=== PATIENT | female | born 1970 | race African-American/Black ===

== ENCOUNTER 2017-07-05 08:00 | Emergency (ER) | payer MEDICAID, MEDICARE ==
[2017-07-05 08:46] LABS: #Monocytes 0.3 thou/uL (0.11-0.59); #Neutrophils 8.5 thou/uL (1.40-6.50); %Basophils 0.4 % (0.0-1.0); %Eosinophils 0.2 % (0.0-10.0); %Lymphocytes 10.2 % (21.0-51.0); %Monocytes 3.2 % (0.0-10.0); Hematocrit 38.9 % (36.0-47.0); Mean Platelet Volume 6.6 fL (7.4-10.4); White Blood Cell (WBC) Count 9.9 thou/uL (4.8-10.8)
[2017-07-05 08:49] LABS: Bilirubin Moderate (Negative); Blood, Urine Moderate (Negative); Glucose, Urine (Dipstick) Negative (Negative); Ketone, Urine Trace mg/dL (Negative); Nitrite Negative (Negative); Protein, Urine (Dipstick) > or equal to 300 mg/dL (Neg-Trace)
[2017-07-05 08:52] LABS: Bacteria/HPF 1+ HPF (None Seen); Squamous Epithelial 21-50 HPF (0-3)
[2017-07-05 09:09] LABS: ALT (SGPT) 21 U/L (8-55); AST (SGOT) 16 U/L (5-34); Alkaline Phosphatase 163 U/L (40-150); Anion Gap 17 mmol/L (10-20); BUN (Urea Nitrogen) 35 mg/dL (7.0-18.7); Bilirubin, Total 1.1 mg/dL (0.2-1.2); Calc. Creatinine Clearance 0 mL/min (70-130); Calcium 9.9 mg/dL (7.8-10.44); Carbon Dioxide 28 mmol/L (22-29); Chloride 96 mmol/L (98-107); Estimated GFR-MDRD 11; Globulin 4.2 g/dL (2.4-3.5); Lipase Less than 4 U/L (8-78); Magnesium 2.9 mg/dL (1.6-2.6); Phosphorus 5.2 mg/dL (2.3-4.7); Protein, Total 7.9 g/dL (6.0-8.3)
[2017-07-05 09:15] LABS: Troponin I 0.643 ng/mL (< 0.028)
[2017-07-05 09:16] LABS: Hyaline Casts/LPF 4-6 HYALINE CAST LPF (0-3 Hyaline)
[2017-07-05] MEDS ORDERED: hydrALAZINE 20 MG/ML VIAL ONE (10:07)
[2017-07-05] MEDS ORDERED: Ondansetron HCl/PF 4 MG/2 ML Vial ONE ×2 (10:07→13:14)
--- NOTE | 2017-07-05 10:18 | RAD ---
FRONTAL VIEW CHEST: COMPARISON: 04/12/17. INDICATION: Nausea, end-stage renal disease. FINDINGS: There is edema of the bilateral perihilar regions as well as bilateral pleural effusions. Enlargeme nt of the cardiac silhouette again seen. No significant interval change otherwise depicted. IMPRESSION: Enlargement of the cardiac silhouette with pulmonary edema and bilateral pleural effusions. POS: [facility]
== END 2017-07-05 11:20 | disposition home or self-care (01) ==
LOC: ERS 08:00
DX: I13.2 Hypertensive heart and chronic kidney disease with heart failure and with stage 5 chronic kidney disease, or end stage renal disease (principal); I50.9 Heart failure, unspecified; N18.6 End stage renal disease; E87.70 Fluid overload, unspecified; I25.2 Old myocardial infarction; E11.9 Type 2 diabetes mellitus without complications; E78.5 Hyperlipidemia, unspecified; Z86.73 Personal history of transient ischemic attack (TIA), and cerebral infarction without residual deficits; Z79.4 Long term (current) use of insulin; Z79.899 Other long term (current) drug therapy
CPT/HCPCS: 71010; 80053; 81003; 81015; 82553; 83690; 83735; 84100; 84484; 85025; 93005; 96374; 96375; J0360; J2405

== ENCOUNTER 2017-07-06 16:09 | Inpatient (IN) | payer MEDICARE ==
[2017-07-06 16:55] LABS: #Lymphocytes 1.4 thou/uL (1.20-3.40); #Monocytes 0.7 thou/uL (0.11-0.59); #Neutrophils 5.8 thou/uL (1.40-6.50); %Basophils 0.3 % (0.0-1.0); %Eosinophils 0.2 % (0.0-10.0); %Lymphocytes 17.5 % (21.0-51.0); %Monocytes 8.7 % (0.0-10.0); Hematocrit 38.9 % (36.0-47.0); Mean Platelet Volume 6.5 fL (7.4-10.4); White Blood Cell (WBC) Count 7.9 thou/uL (4.8-10.8)
[2017-07-06 17:04] LABS: Lactic Acid - Sepsis 1.8 mmol/L (0.5-2.2)
[2017-07-06 17:08] LABS: ALT (SGPT) 21 U/L (8-55); AST (SGOT) 18 U/L (5-34); Alkaline Phosphatase 153 U/L (40-150); Anion Gap 16 mmol/L (10-20); BUN (Urea Nitrogen) 25 mg/dL (7.0-18.7); Bilirubin, Total 1.5 mg/dL (0.2-1.2); Calc. Creatinine Clearance 0 mL/min (70-130); Calcium 9.4 mg/dL (7.8-10.44); Carbon Dioxide 28 mmol/L (22-29); Chloride 95 mmol/L (98-107); Estimated GFR-MDRD 14; Globulin 3.6 g/dL (2.4-3.5); Lipase Less than 4 U/L (8-78); Magnesium 2.4 mg/dL (1.6-2.6); Protein, Total 6.9 g/dL (6.0-8.3)
[2017-07-06 17:16] LABS: Troponin I 0.455 ng/mL (< 0.028)
[2017-07-06 18:27] LABS: Bilirubin Moderate (Negative); Blood, Urine Small (Negative); Glucose, Urine (Dipstick) Negative (Negative); Ketone, Urine Trace mg/dL (Negative); Nitrite Negative (Negative); Protein, Urine (Dipstick) > or equal to 300 mg/dL (Neg-Trace)
[2017-07-06 18:29] LABS: Bacteria/HPF 1+ HPF (None Seen)
[2017-07-06 18:39] LABS: Hyaline Casts/LPF 4-6 HYALINE CAST LPF (0-3 Hyaline)
[2017-07-06] MEDS ORDERED: Ondansetron HCl/PF 4 MG/2 ML Vial ONE (18:49)
--- NOTE | 2017-07-06 20:21 | RAD ---
PORTABLE CHEST: 07/06/17 HISTORY: End-stage renal disease, shortness of breath. COMPARISON: 07/05/17 exam. Heart size is enlarged. There is mild vascular engorgement. There has been a definite improvement to the appearance of the chest. The effusions appear much smaller. IMPRESSION: Cardiomegaly with improved pulmonary edema change. POS: [facility]
[2017-07-06] MEDS ORDERED: Labetalol HCl 100 MG/20 ML VIAL ONE (20:32)
[2017-07-06] MEDS ORDERED: HYDROcodone/Acetaminophen 5/325 mg Tablet PO PRN (20:57)
[2017-07-06] MEDS ORDERED: Zolpidem Tartrate 5 MG TAB PO PRN (20:57)
[2017-07-06] MEDS ORDERED: Ondansetron HCl/PF 4 MG/2 ML Vial IVP PRN (20:57)
[2017-07-06] MEDS ORDERED: Acetaminophen 325 MG TAB PO PRN (20:57)
[2017-07-06] MEDS ORDERED: Famotidine/PF 20 mg/2ml Vial SLOW IVP SCH (21:00)
[2017-07-06] MEDS ORDERED: HumaLOG 300 UNITS/3 ML VIAL SC PRN (21:01)
[2017-07-06] MEDS ORDERED: Dextrose 5% in Water 1,000 ML IV PRN (21:01)
[2017-07-06] MEDS ORDERED: Dextrose 50% Abboject 50 ML SYRINGE SLOW IVP PRN (21:01)
[2017-07-06] MEDS ORDERED: hydrALAZINE 20 MG/ML VIAL SLOW IVP PRN (21:04)
[2017-07-06] MEDS ORDERED: traMADol HCl 50 MG TAB PO PRN (21:04)
--- NOTE | 2017-07-06 21:23 | HP ---
DATE OF ADMISSION: 07/06/2017 ADMITTING PHYSICIAN: Dr. Abraham Santos. PRIMARY CARE PHYSICIAN: Dr. Dubon. CHIEF COMPLAINT: Weakness, nausea and vomiting, shortness of breath. HISTORY OF PRESENT ILLNESS: The patient is a 47-year-old female with history of end-stage renal dis ease on dialysis. Due to family issues, she was not able to maintain her normal Saturday, Saturday, Saturday dialysis regimen. She has been suffering with nausea and vomiting since Saturday with incre ased shortness of breath. She had ultrafiltration yesterday, but presents today with continued weak ness, nausea, and \\\\"empty feeling in her stomach.\\\\" REVIEW OF SYSTEMS: The following complete review of systems was negative, unless otherwise mentione d in the HPI or below: Constitutional: Weight loss or gain, sense of well-being, ability to conduct usual activities, exer cise tolerance. Skin/Breast: Rash, itching, changes in hair growth or loss, nail changes, breast l umps, tenderness, swelling, nipple discharge. Eyes: Vision, double vision, tearing, blind spots, p ain. ENT/Mouth: Headaches (location, time of onset, duration, precipitating factors), vertigo, lightheadedness, injury. Vision, double vision, tearing, blind spots, pain, nose bleeding, colds, obstruction, discharge, dental difficulties, gingival bleeding, dentures, neck stif fness, pain, tenderness, masses in thyroid or other areas Cardiovascular: Precordial pain, subster nal distress, palpitations, syncope, dyspnea on exertion, orthopnea, nocturnal paroxysmal dyspnea, e esau, cyanosis, hypertension, heart murmurs, varicosities, phlebitis, claudication. Respiratory: P ain, shortness of breath, wheezing, stridor, cough, hemoptysis, fever or night sweats. Gastrointest inal: Poor appetite, dysphagia, indigestion, abdominal pain, heartburn, eructation, nausea, vomitin g, hematemesis, jaundice, constipation, or diarrhea, abnormal stools (aleksey-colored, tarry, bloody, g reasy, foul smelling), flatulence, hemorrhoids, recent changes in bowel habits. Genitourinary: Urg ency, frequency, dysuria, nocturia, hematuria, polyuria, oliguria, unusual (or change in) color of u rine, stones, hesitancy, change in size of stream, dribbling, acute retention or incontinence, libid o, potency. Musculoskeletal: Pain, swelling, redness or heat of muscles or joints, limitation, of motion, muscular weakness, atrophy, cramps. Neurologic/Psychiatric: Convulsions, paralyses, tremor , incoordination, parasthesias, difficulties with memory of speech, sensory or motor disturbances, o r muscular coordination (ataxia, tremor), emotional problems, anxiety, depression, previous psychiat james care, unusual perceptions, hallucinations. Allergy/Immunologic: Skin rash, anemia, bleeding te ndency, polydipsia, polyuria, intolerance to heat or cold. PAST MEDICAL HISTORY: As stated, end-stage renal disease, dyslipidemia, diabetes, hypertension, his tory of CVA, congestive heart failure. PAST SURGICAL HISTORY: Positive for hysterectomy, tubal ligation, bilateral eye surgery, cardiac st ent placement, amputation of the second toe on her left foot and dialysis shunt placement. PSYCHIATRIC HISTORY: None. SOCIAL HISTORY: She drinks socially every week, but denies drug use, no smoking, no alcohol in 2 ye ars. FAMILY HISTORY: Noncontributory to this case. ALLERGIES: No known drug allergies. HOME MEDICATIONS: Effient 10 mg once a day, gabapentin 300 mg t.i.d., Isordil 60 mg every day, hydr alazine 25 mg p.o. t.i.d., Coreg 12.5 mg b.i.d., amlodipine 10 mg once a day, Lasix 40 mg once a day , Pravachol 40 mg once a day, Levemir 25 units b.i.d. PHYSICAL EXAMINATION: VITAL SIGNS: Blood pressure 195/125, pulse 89, respirations 18, temperature 98.7, satting 100% on r oom air. GENERAL: She appears to have mild discomfort, but in no apparent distress. She is oriented to pers on, place and time. HEENT: Normocephalic, atraumatic. EYES: PERRL. Extraocular muscles intact. There is left conjunctival or corneal hemorrhage. NECK: Normal range of motion. Trachea midline. CHEST: Breath sounds relatively clear, no wheezing. CARDIOVASCULAR: Sinus tachycardia. No murmurs, regurgitation or gallop. ABDOMEN: Nontender. There is mild distention, hypoactive bowel sounds. NEUROLOGIC: Normal speech, no focal deficits and once again she is alert and oriented x3. LABORATORY DATA AND IMAGES: Urinalysis shows chris cloudy urine with small amount of leukocytes. U rine protein elevated, urine ketones trace, bilirubin moderate, with 1+ bacteria. Beta hCG negative . BNP 9211, troponin I of 0.455, CK-MB 2.2, mag 2.4, lipase less than 4. CMP shows a sodium of 135 , potassium 3.5, chloride 95, CO2 of 28, BUN 25, creatinine 4.03, glucose 113, calcium 9.4, total bi lirubin 1.5, albumin 3.3, AST 18, ALT 21, alkaline phosphatase 153, lactic acid 1.8. CBC shows a wh ite count of 7.9, hemoglobin 12.1, hematocrit 38.9, platelets 303,000. The patient's chest film oscar ws cardiomegaly with improved pulmonary edema when compared to 07/05. ASSESSMENT AND PLAN: 1. End-stage renal disease. 2. Urinary tract infection. 3. Nausea and vomiting. 4. Diabetes type 2. 5. Uncontrolled hypertension. PLAN: The patient will be admitted to telemetry observation, we will consult Nephrology service. T he patient will be treated empirically with fluoroquinolone and Flagyl to cover possible gastritis a s well as a urinary tract infection. We will make other treatment alterations based her clinical st atus.
[2017-07-06] MEDS: metroNIDAZOLE 250 MG in Admixture Fee 1 EACH IVPB SCH (22:09)
[2017-07-06 22:25] VITALS: BMI 31.8
[2017-07-07 04:31] LABS: Anion Gap 15 mmol/L (10-20); BUN (Urea Nitrogen) 31 mg/dL (7.0-18.7); BUN/Creatinine Ratio 6.94; Calc. Creatinine Clearance 21 mL/min (70-130); Calcium 9.4 mg/dL (7.8-10.44); Carbon Dioxide 31 mmol/L (22-29); Chloride 94 mmol/L (98-107); Estimated GFR-MDRD 13; Phosphorus 4.6 mg/dL (2.3-4.7)
[2017-07-07] MEDS: metroNIDAZOLE 250 MG in Admixture Fee 1 EACH IVPB SCH ×3 (05:36→21:32)
[2017-07-07] MEDS: Carvedilol 6.25 MG TAB PO SCH ×2 (08:33→20:27)
[2017-07-07] MEDS: Amlodipine 10 MG TAB PO SCH (08:33)
--- NOTE | 2017-07-07 12:41 | PDOC.PN ---
- Subjective Encounter Start Date: 07/07/17 Encounter Start Time: 12:38 Subjective: no nausea, right sided abdominal pain - Objective Vital Signs & Weight: Vital Signs (12 hours) Temp Pulse Resp BP Pulse Ox 07/07/17 11:09 98.5 F 73 18 156/82 H 95 07/07/17 08:33 78 07/07/17 08:03 98.5 F 78 16 07/07/17 07:12 98.5 F 78 16 177/81 H 98 07/07/17 05:40 96 07/07/17 03:46 98.4 F 81 16 168/81 H Weight Weight 191 lb 11.2 oz I&O: 07/06/17 07/07/17 07/08/17 06:59 06:59 06:59 Intake Total 240 Output Total 70 Balance -70 240 Result Diagrams: 07/06/17 16:39 07/07/17 03:48 Additional Labs: Accuchecks 07/07/17 07/06/17 11:55 21:35 POC Glucose 88 98 Phys Exam - Physical Examination HEENT: PERRLA, TM's clear Neck: no JVD Respiratory: no wheezing Cardiovascular: RRR Gastrointestinal: soft, no distention, positive bowel sounds Musculoskeletal: no edema Neurological: non-focal, moves all 4 limbs Dx/Plan (1) Nausea & vomiting Code(s): R11.2 - NAUSEA WITH VOMITING, UNSPECIFIED Status: Acute (2) UTI (urinary tract infection) Status: Acute (3) Elevated troponin I level Code(s): R79.89 - OTHER SPECIFIED ABNORMAL FINDINGS OF BLOOD CHEMISTRY Status : Acute Comment: Due to demand ischemia in context sepsis, no ACS (4) Diabetes type 2, controlled Code(s): E11.9 - TYPE 2 DIABETES MELLITUS WITHOUT COMPLICATIONS Status: Chronic Qualifiers: (5) ESRD (end stage renal disease) on dialysis Code(s): N18.6 - END STAGE RENAL DISEASE; Z99.2 - DEPENDENCE ON RENAL DIALYSIS Status: Chronic Comment: HD per Renal service, using Graft for now (6) Hypertension Code(s): I10 - ESSENTIAL (PRIMARY) HYPERTENSION Status: Chronic Qualifiers: Comment: Stable, (7) Obesity (BMI 30.0-34.9) Code(s): E66.9 - OBESITY, UNSPECIFIED Status: Chronic - Plan cont current plan of care check troponin -: asa daily -: consult cardio -: nephro consulted * .
[2017-07-07] MEDS ORDERED: Prasugrel 10 MG TAB PO SCH ×2 (13:30→14:00)
[2017-07-07 13:36] LABS: Critical Call Chem Troponin I RESULT DECREASING; Troponin I 0.409 ng/mL (< 0.028)
[2017-07-07] MEDS: Aspirin 325 MG TAB PO SCH (14:16)
--- NOTE | 2017-07-07 17:11 | CON ---
CARDIOLOGY CONSULTATION NOTE DATE OF CONSULTATION: 07/07/2017 REASON FOR CONSULTATION: Non-STEMI. PRIMARY WOOLING MACHINE OPERATOR: Leonor Topete M.D. HISTORY OF PRESENT ILLNESS: Ms. Lassiter is a very pleasant 47-year-old -[place] female who comes to the hospital for nausea, vomiting and diarrhea. She was diagnosed with gastroenteritis and was admitted. She is on hemodialysis Saturday, Saturday and Saturday due to end-stage renal disease. She had some troponins drawn and they were high at 0.6, so Cardiology has been consulted for this. She has a history of ischemic cardiomyopathy. Her EF was 35% to 40%. She had a heart catheterizat ion back in 03/2017 and had drug-eluting stents placed to the LAD and left circumflex. She tells me that she stopped her antiplatelet therapy on Saturday as she could not hold anything down. She de nies any chest pain, tightness, pressure, no shortness of breath. PAST MEDICAL HISTORY: 1. End-stage renal disease. 2. Hyperlipidemia. 3. Type 2 diabetes. 4. CVA in the past. 5. Ischemic cardiomyopathy. 6. Coronary artery disease as above. PAST SURGICAL HISTORY: 1. Hysterectomy. 2. Tubal ligation. 3. Bilateral eye surgery. 4. Stent placements as above. 5. Second toe and left foot amputation. 6. Dialysis shunt. OUTPATIENT MEDICATIONS: Include; 1. Effient 10 mg a day. 2. Gabapentin. 3. Isordil 60 mg twice a day. 4. Hydralazine 25 mg t.i.d. 5. Coreg 12.5 mg b.i.d. 6. Amlodipine 10 mg a day. 7. Lasix 40 mg a day. 8. Pravachol 40 mg a day. 9. Levemir. ALLERGIES: No known drug allergies. FAMILY HISTORY: Noncontributory. SOCIAL HISTORY: Drinks socially. No drug or alcohol use. REVIEW OF SYSTEMS: A 12-point review of systems is done, it all negative unless otherwise stated in the history of present illness. PHYSICAL EXAMINATION: VITAL SIGNS: Temperature 98.5, pulse 73, respirations 18, satting 95% on room air and blood pressur e 156/82. GENERAL: Awake, alert and oriented x3. No distress. HEENT: Normocephalic and atraumatic. NECK: Supple. LUNGS: Clear. CARDIOVASCULAR: S1 and S2. No S3 or S4. No murmurs or rubs. ABDOMEN: Soft, positive bowel sounds. EXTREMITIES: 1+ edema. SKIN: Warm and dry. LABORATORY DATA: Laboratory work was reviewed. CBC: Normal white count and hemoglobin, platelet c ount of 303. Chemistry was unremarkable for sodium of 135, BUN and creatinine are high, GFR 14, tot al bilirubin was 1.5, alk phos was 153, AST and ALT were normal. CK-MB was normal, troponin was 0.4 5, BNP was 9211 and albumin of 3.5. UA: Trace ketones, small amounts of blood, 11-20 white cells, 11-20 squamous epithelial cells, has 1+ bacteria. Negative test. ASSESSMENT AND PLAN: 1. Non -ST-elevation myocardial infarction; most likely demand ischemia from her acute infectious p rocess as she is asymptomatic from the cardiac standpoint. We will restart her Effient today. We w ill give her 60 mg dose to reload her and 10 mg a day after that. We will get an echocardiogram to make sure that her left ventricular function is not worsened. If it has, she may need a heart claudio terization in the next two days. 2. Ischemic cardiomyopathy, reduced ejection fraction, not a candidate for an automatic implantable cardioverter-defibrillator. We will see what the echocardiogram shows. 3. End-stage renal disease, on dialysis. 4. Hypertension: Will get better once hemodialysis is performed. Thank you for letting us to participate in the care of your patient. Dr. Topete is her primary cardio logist. We will follow up in the morning.
--- NOTE | 2017-07-07 18:34 | CON ---
DATE OF CONSULTATION: 07/07/2017 NEPHROLOGY CONSULTATION CONSULTING PHYSICIAN: Abraham Santos M.D. REASON FOR CONSULTATION: End-stage renal disease evaluation and care. REASON FOR ADMISSION: Nausea, vomiting, and weakness. HISTORY OF PRESENT ILLNESS: This is a 47-year-old female with history of end-stage renal disease, hypertension who came to the hospital with the above complaints and Nephrology is consulted for maintenance hemodialysis, she gets dialysis usually on Saturday, Saturday, and Saturday. She is feeling little bit better today. No fever, no nausea, vomiting, no chest pain, palpitation still is present. No rash. PAST MEDICAL HISTORY: Positive for end-stage renal disease, hyperlipidemia, type 2 diabetes, hypertension, CVA, congestive heart failure. PAST SURGICAL HISTORY: Hysterectomy, tubal litigation, eye surgery, cardiac stent placement, amputation, and dialysis shunt placement. HOME MEDICATIONS: Effient, gabapentin, Isordil, hydralazine, Coreg, amlodipine , Lasix, Pravachol, and Levemir. ALLERGIES: No known drug allergies. FAMILY HISTORY: No history of any kidney disease. SOCIAL HISTORY: No smoking, alcohol or illicit drug abuse. REVIEW OF SYSTEMS: The following complete review of systems was negative, unless otherwise mentioned in the HPI or below: Constitutional: Weight loss or gain, ability to conduct usual activities. Skin: Rash, itching. Eyes: Double vision, pain. ENT/Mouth: Nose bleeding, neck stiffness, pain, tenderness. Cardiovascular: Palpitations, dyspnea on exertion, orthopnea. Respiratory: Shortness of breath, wheezing, cough, hemoptysis, fever or night sweats. Gastrointestinal: Poor appetite, abdominal pain, heartburn, nausea, vomiting, constipation, or diarrhea. Genitourinary: Urgency, frequency, dysuria, nocturia. Musculoskeletal: Pain, swelling. Neurologic/Psychiatric: Anxiety, depression. Allergy/Immunologic: Skin rash, bleeding tendency. PHYSICAL EXAMINATION: GENERAL: Reveals a well-built female in no apparent distress. VITAL SIGNS: Temperature 98.5, pulse 78, respiratory rate 18, blood pressure 156/82. HEENT: Atraumatic, normocephalic. Oral mucosa is moist. NECK: Supple. No masses. CARDIOVASCULAR: S1, S2 heard. Rate and rhythm regular. RESPIRATORY: Clear. ABDOMEN: Soft. MUSCULOSKELETAL: Right leg, 1+ edema. DERMATOLOGIC: No skin rash. NEUROLOGIC: Alert, awake. PSYCHIATRIC: Mood and affect normal. LABORATORY DATA: Potassium is 3.5, BUN is 31, creatinine is 4.4, and hemoglobin is 12.1. ASSESSMENT AND PLAN: 1. End-stage renal disease, on hemodialysis Saturday, Saturday, Saturday. No acute indication for dialysis. We will continue on dialysis on Saturday, Saturday, and Saturday. 2. Hypertension, stable. 3. Edema, controlled. 4. Anemia. Hemoglobin is stable. 5. Hypoalbuminemia. Increase protein intake. 6. Overall, the patient does not have any acute indication for dialysis. We will continue on dialysis Saturday, Saturday, and Saturday. MTDD
[2017-07-07] MEDS ORDERED: Famotidine/PF 20 mg/2ml Vial SLOW IVP SCH (21:00)
[2017-07-08 04:28] VITALS: TEMP 97.9
[2017-07-08] MEDS: metroNIDAZOLE 250 MG in Admixture Fee 1 EACH IVPB SCH (06:30)
[2017-07-08 08:06] VITALS: BP 131/71
[2017-07-08] MEDS ORDERED: Prasugrel 10 MG TAB PO SCH (09:00)
[2017-07-08] MEDS: Amlodipine 10 MG TAB PO SCH (09:11)
[2017-07-08] MEDS: Carvedilol 6.25 MG TAB PO SCH (09:12)
[2017-07-08] MEDS: Aspirin 325 MG TAB PO SCH (09:12)
[2017-07-08 10:00] LABS: #Eosinphils 0.1 thou/uL (0.0-0.7); #Lymphocytes 0.9 thou/uL (1.20-3.40); #Monocytes 0.5 thou/uL (0.11-0.59); #Neutrophils 4.2 thou/uL (1.40-6.50); %Basophils 0.3 % (0.0-1.0); %Eosinophils 1.5 % (0.0-10.0); %Lymphocytes 15.7 % (21.0-51.0); %Monocytes 9.4 % (0.0-10.0); Mean Platelet Volume 6.2 fL (7.4-10.4); Red Blood Cell (RBC) Count 3.92 mill/uL (4.20-5.40); White Blood Cell (WBC) Count 5.8 thou/uL (4.8-10.8)
[2017-07-08 10:17] LABS: Anion Gap 13 mmol/L (10-20); BUN (Urea Nitrogen) 37 mg/dL (7.0-18.7); Calc. Creatinine Clearance 18 mL/min (70-130); Calcium 8.7 mg/dL (7.8-10.44); Carbon Dioxide 30 mmol/L (22-29); Chloride 93 mmol/L (98-107); Estimated GFR-MDRD 10
--- NOTE | 2017-07-08 10:54 | PRG ---
DATE OF SERVICE: 07/08/2017 SUBJECTIVE: A 47-year-old female being seen for end-stage renal disease. Patient denies any nausea , vomiting or chest pain. PHYSICAL EXAMINATION: GENERAL: Patient is awake, alert. VITAL SIGNS: Afebrile, pulse 60, breathing at 16, blood pressure 131/71. GENERAL APPEARANCE AND MENTAL STATUS: Fair. HEAD/NECK: Normocephalic. Atraumatic. EYES: EOMI. No deformity. EARS: Clear. No ulcers. NOSE: Intact. No lesions. MOUTH: Clear. No discharge. THROAT: Clear. No exudate. LUNGS: Clear. No crackles. CARDIAC: S1, S2. No rub. ABDOMEN: Benign. BS+. GENITALIA/RECTUM: Thompson absent. BACK/EXTREMITIES: Edema 0+ Ulcer- NEUROLOGICAL: Alert and motor intact. SKIN: Rash- Bruise- LYMPHATICS: Edema- Ulcer- LABORATORY DATA: Show hemoglobin 11.4. ASSESSMENT AND PLAN: 1. Stage 6 chronic kidney disease, continue hemodialysis. 2. Hypertension, stable. 3. Anemia, stable. 4. Medications based on glomerular filtration rate are appropriate.
--- NOTE | 2017-07-08 11:42 | PDOC.CTH ---
Cardiology Progress Note - Subjective The pt was seen and examined. No overnight events. No cardiac complaints. She is receiving HD at this moment. - Objective Vital Signs Temp Pulse Resp BP BP Pulse Ox 07/08/17 08:00 97.9 F 63 18 07/08/17 07:45 97.9 F 63 18 131/71 99 07/08/17 04:10 97.9 F 63 14 125/69 Weight 191 lb 11.2 oz 07/07/17 07/08/17 07/09/17 06:59 06:59 06:59 Intake Total 1112 Output Total 70 Balance -70 1112 - Physical Examination General/Neuro: alert & oriented x3 Neck: no JVD present Lungs: CTA Heart: RRR Abdomen: soft Extremities: other: (No edema) - Telemetry Telemetry Rhythm: SR 66 - Labs Result Diagrams: 07/08/17 09:36 07/08/17 09:36 Troponin/CKMB CK-MB (CK-2) 2.2 ng/mL (0-6.6) 07/06/17 16:39 Troponin I 0.409 ng/mL (< 0.028) H* 07/07/17 12:54 - Assessment/Plan 1. Ischemic CMY - 2. CAD with hx of drug eluting stent to LAD and Lt circumflex in 03/2017 - stable; cont. monitor on tele 3. CKD stage 6 - HD on MWF; managed by horse stud worker 4. HTN - stable with ASA, BBlocker, and effient 5. DM type 2 - managed by PCP 6. Hx of CVA - stable; cont. monitor 7. Anemia - stable 8. N&V - has not vomiting since last MAR reviewed Review of Systems - Review of Systems Constitutional: reports: no symptoms reported EENTM: reports: no symptoms reported Respiratory: reports: no symptoms reported Cardiac (ROS): reports: no symptoms reported ABD/GI: reports: no symptoms reported : reports: no symptoms reported Musculoskeletal: reports: no symptoms reported Skin: reports: no symptoms reported Neurological: reports: no symptoms reported
--- NOTE | 2017-07-08 12:55 | DIS ---
DATE OF ADMISSION: 07/06/2017 DATE OF DISCHARGE: 07/08/2017 DISCHARGE DIAGNOSES: 1. Urinary tract infection. 2. Severe sepsis. 3. Demand ischemia. 4. Diabetes mellitus type 2. 5. End-stage renal disease, on hemodialysis. 6. Hypertension. 7. Anemia of chronic renal disease. 8. Obesity, body mass index 30-35. CONSULTATIONS: 1. Cardiology, Dr. Julius Noriega. 2. Nephrology, Dr. Tarah Graham and Dr. Aleks Mathias. HISTORY AND PHYSICAL: Ms. Lassiter is a pleasant 47-year-old female with diabetes, hypertension, end-stage renal disease who presented in the emergency department for intractable naus ea and vomiting, weakness, and shortness of breath on 07/06/2017. She was seen and evaluated in the emergency department, she was found to have elevated blood pressur e of 195/125, elevated troponin, dehydration, and elevated blood sugars. She was subsequently broug ht into the hospital for further treatment evaluation and was found to have a UTI and started on ant ibiotics. HOSPITAL COURSE: The patient was seen and examined and admitted by Dr. Abraham Santos. She was initi ally placed on observation, however, did meet inpatient criteria, and was subsequently converted to inpatient prior to discharge. Overnight 07/06/2017 to 07/07/2017, the patient remained stable. Nephrology was consulted and saw h er on the and started to resume dialysis on her normal Saturday, Saturday, Saturday schedule start ing today. [employer] saw her and felt she had elevated troponin secondary to demand ischemia fro m her presenting event and was subsequently not changed any of the medications. Echocardiogram was done that showed EF 40%-45%, grade 2/3 diastolic dysfunction, moderately dilated left atrium and enl arged right atrial size and mild MR. No further intervention made by Cardiology. Nausea and vomiting improved on the and resolved by that night and overnight remained without a ny nausea or vomiting. Blood pressure is under much better control. She denies any chest pain or d ifficulty breathing and is stable for discharge home. PHYSICAL EXAMINATION: VITAL SIGNS: The patient was seen and examined in dialysis on the day of discharge. Discharge plan and disposition were discussed with the patient face to face at the bedside. DISCHARGE MEDICATIONS: 1. Levofloxacin 500 mg orally every other day starting on 07/10/2017. Prescription sent for 3 tabl ets with no refills. 2. Aspirin 325 mg daily. 3. Coreg 12.5 mg p.o. b.i.d. 4. Neurontin 100 mg p.o. t.i.d. 5. Isosorbide mononitrate 60 mg daily. 6. Levemir 25 units subcu at bedtime. 7. Effient 10 mg daily. 8. Pravachol 40 mg p.o. at bedtime. 9. Renvela 800 mg p.o. t.i.d. a.c. 10. Amlodipine 10 mg daily. 11. Hydralazine 25 mg p.o. b.i.d. 12. Tramadol 50 mg p.o. t.i.d. p.r.n. pain. FOLLOWUP APPOINTMENTS: 1. Primary care physician who is Dr. Brad Parkinson within a week. 2. Nephrology per their previously scheduled visits. 2. Cardiology per their schedule. DISCHARGE ACTIVITY: As tolerated. DISCHARGE DIET: Heart healthy, diabetic, renal diet as before. DISCHARGE CONDITION: Stable. DISCHARGE DISPOSITION: The patient will be discharged home via private vehicle. Patient to return to report for any further problems.
== END 2017-07-08 15:30 | disposition home or self-care (01) | DRG 689 ==
LOC: ERS 16:09 → 2SW 21:23 → OBSVTOIN 07-08 12:00
PROVIDERS: ADMIT Internal Medicine Addiction Medicine; ATTEND Internal Medicine Addiction Medicine
PROC: 5A1D70Z Performance of Urinary Filtration, Intermittent, Less than 6 Hours Per Day (ICD-10-PCS; principal; 2017-07-08)
DX: N39.0 Urinary tract infection, site not specified (principal); N18.6 End stage renal disease; I13.2 Hypertensive heart and chronic kidney disease with heart failure and with stage 5 chronic kidney disease, or end stage renal disease; I24.8 Other forms of acute ischemic heart disease; E11.22 Type 2 diabetes mellitus with diabetic chronic kidney disease; Z99.2 Dependence on renal dialysis; Z79.4 Long term (current) use of insulin; E78.5 Hyperlipidemia, unspecified; Z86.73 Personal history of transient ischemic attack (TIA), and cerebral infarction without residual deficits; Z95.5 Presence of coronary angioplasty implant and graft; D63.1 Anemia in chronic kidney disease; E66.9 Obesity, unspecified; Z68.35 Body mass index [BMI] 35.0-35.9, adult; E86.0 Dehydration; I25.5 Ischemic cardiomyopathy; I25.10 Atherosclerotic heart disease of native coronary artery without angina pectoris
CPT/HCPCS: 36415; 36416; 71010; 80048; 80053; 80069; 81003; 81015; 81025; 82553; 83605; 83690; 83735; 83880; 84100; 84484; 85025; 87086; 87340; 90935; 93005; 93306; 94760; 96374; 96375; A4216; G0257; J0360; J1956; J2405; S0028

== ENCOUNTER 2017-08-15 15:30 | Emergency (ER) | payer MEDICARE ==
[2017-08-15 17:14] LABS: #Basophils 0.1 thou/uL (0.0-0.2); #Lymphocytes 1.1 thou/uL (1.20-3.40); #Monocytes 0.4 thou/uL (0.11-0.59); #Neutrophils 4.8 thou/uL (1.40-6.50); %Basophils 0.9 % (0.0-1.0); %Eosinophils 0.4 % (0.0-10.0); %Lymphocytes 16.9 % (21.0-51.0); %Monocytes 5.7 % (0.0-10.0); Red Blood Cell (RBC) Count 4.13 mill/uL (4.20-5.40); White Blood Cell (WBC) Count 6.3 thou/uL (4.8-10.8)
[2017-08-15 17:37] LABS: ALT (SGPT) 7 U/L (8-55); AST (SGOT) 11 U/L (5-34); Alkaline Phosphatase 127 U/L (40-150); Anion Gap 11 mmol/L (10-20); BUN (Urea Nitrogen) 11 mg/dL (7.0-18.7); Bilirubin, Total 1.4 mg/dL (0.2-1.2); Calc. Creatinine Clearance 0 mL/min (70-130); Calcium 9.7 mg/dL (7.8-10.44); Carbon Dioxide 32 mmol/L (22-29); Chloride 97 mmol/L (98-107); Estimated GFR-MDRD 19; Globulin 3.8 g/dL (2.4-3.5); Protein, Total 7.3 g/dL (6.0-8.3)
[2017-08-15] MEDS ORDERED: Ondansetron HCl/PF 4 MG/2 ML Vial ONE (17:39)
[2017-08-15 17:57] LABS: CK (CPK) 132 U/L (29-168); Lipase Less than 4 U/L (8-78)
[2017-08-15 18:02] LABS: Troponin I 0.197 ng/mL (< 0.028)
--- NOTE | 2017-08-15 18:25 | RAD ---
CHEST ONE VIEW: History: Chest pain. Comparison: 04-12-17 FINDINGS: Heart size is enlarged. Small effusion. Mild edema. No pneumothorax. IMPRESSION: Similar appearance of the cardiomegaly and volume overload. POS: [facility]
[2017-08-15 19:05] LABS: Bilirubin Small (Negative); Blood, Urine Large (Negative); Glucose, Urine (Dipstick) 100 mg/dL (Negative); Ketone, Urine Trace mg/dL (Negative); Nitrite Negative (Negative); Protein, Urine (Dipstick) > or equal to 300 mg/dL (Neg-Trace)
[2017-08-15 19:06] LABS: Bacteria/HPF 1+ HPF (None Seen)
[2017-08-15 19:28] LABS: Hyaline Casts/LPF 7-10 HYALINE CAST LPF (0-3 Hyaline); Renal Epithelial None Seen HPF (0-3); Transitional Epithelial NONE SEEN HPF (0-3)
--- NOTE | 2017-08-15 19:52 | CT ---
CT ABDOMEN AND PELVIS WITHOUT CONTRAST: History: Pain. Comparison: 03-12-17 FINDINGS: There are moderate sized bilateral layering pleural effusions. Heart size is enlarged. Trace pericard ial fluid. Compared to the prior examination, the ascites has increased. Debris within the vaginal vault is gil lar. No dilated loops of large or small bowel. There is mild vascular calcifications of the renal arteries . Dense vascular calcification or the origin of the left renal artery. The noncontrast evaluated spleen and liver are unremarkable. Cholecystectomy clips are present. No ac [place] osseous abnormality. No ureterolithiasis or hydroureteronephrosis. Urinary bladder is not distended. IMPRESSION: 1. Increased intraperitoneal ascites from the comparison examination. 2. Moderate sized layering pleural effusions and cardiomegaly. There is also mild volume overload in the lung bases. 3. No renal calculi. POS: [facility]
== END 2017-08-15 20:32 | disposition home or self-care (01) ==
LOC: ERS 15:30
DX: R10.13 Epigastric pain (principal); R11.2 Nausea with vomiting, unspecified; E11.9 Type 2 diabetes mellitus without complications; E78.5 Hyperlipidemia, unspecified; I25.2 Old myocardial infarction; I50.9 Heart failure, unspecified; I11.0 Hypertensive heart disease with heart failure; Z79.4 Long term (current) use of insulin; Z79.899 Other long term (current) drug therapy
CPT/HCPCS: 36415; 71010; 74176; 80053; 81003; 81015; 81025; 82553; 83690; 84484; 85025; 93005; 94760; 96374; J2405

== ENCOUNTER 2018-05-15 19:57 | Observation (INO) | payer MEDICAID, MEDICARE ==
[2018-05-15 20:37] LABS: Bilirubin Small (Negative); Blood, Urine Moderate (Negative); Clarity CLOUDY (Clear); Glucose, Urine (Dipstick) Negative (Negative); Leukocyte Trace (Negative); Nitrite Negative (Negative); Protein, Urine (Dipstick) 300 mg/dL (Neg-Trace); Specific Gravity, Urine 1.019 (1.002-1.036); pH, Urine 7.5 (5.0-9.0)
[2018-05-15 20:39] LABS: Bacteria/HPF 2+ HPF (None Seen); Hyaline Casts/LPF 4-6 HYALINE CAST LPF (0-3 Hyaline); Pathc Cast-AUWi Flag 1.16 (0-2.49); Squamous Epithelial 21-50 HPF (0-3)
[2018-05-15 20:40] LABS: #Eosinphils 0.1 thou/uL (0.0-0.7); #Monocytes 0.4 thou/uL (0.11-0.59); #Neutrophils 4.8 thou/uL (1.40-6.50); %Basophils 0.7 % (0.0-1.0); %Eosinophils 0.9 % (0.0-10.0); %Monocytes 6.1 % (0.0-10.0); %Neutrophils 76.2 % (42.0-75.0); Hemoglobin 10.5 g/dL (12.0-16.0); Mean Corpuscular HGB CONC 32.6 g/dL (32.0-36.0); Mean Corpuscular Hemoglobin 30.2 pg (27.0-31.0); Mean Corpuscular Volume 92.7 fL (78.0-98.0); Mean Platelet Volume 5.7 fL (7.4-10.4); Platelet Count 284 thou/uL (130-400); RBC Distribution Width 15.6 % (11.5-14.5); Red Blood Cell (RBC) Count 3.47 mill/uL (4.20-5.40); White Blood Cell (WBC) Count 6.3 thou/uL (4.8-10.8)
[2018-05-15 21:00] LABS: ALT (SGPT) 8 U/L (8-55); AST (SGOT) 11 U/L (5-34); Albumin 3.7 g/dL (3.5-5.0); Alkaline Phosphatase 139 U/L (40-150); Anion Gap 13 mmol/L (10-20); BUN (Urea Nitrogen) 16 mg/dL (7.0-18.7); Bilirubin, Total 1.4 mg/dL (0.2-1.2); Calc. Creatinine Clearance 0 mL/min (70-130); Calcium 9.4 mg/dL (7.8-10.44); Carbon Dioxide 32 mmol/L (22-29); Chloride 95 mmol/L (98-107); Estimated GFR-MDRD 13; Globulin 4.4 g/dL (2.4-3.5); Glucose 116 mg/dL (70-105); Lipase 4 U/L (8-78); Potassium 3.6 mmol/L (3.5-5.1); Protein, Total 8.1 g/dL (6.0-8.3); Sodium 136 mmol/L (136-145)
[2018-05-15 21:50] LABS: CKMB 2.9 ng/mL (0-6.6); Troponin I 0.172 ng/mL (< 0.028)
--- NOTE | 2018-05-15 23:13 | CT ---
CT ABDOMEN AND PELVIS WITH IV CONTRAST: 05/15/18 HISTORY: Abdominal pain. Nausea. COMPARISON: 08/15/17. FINDINGS: Right pleural fluid has decreased slightly since the previous exam. Gallbladder is surgically absent. Liver, spleen, kidneys, adrenal glands, and pancreas are within normal limits. Moderate amount of fr ee fluid is present throughout the abdomen. Urinary bladder is decompressed. Calcification throughout the arterial structures. IMPRESSION: Moderate amount of ascites and right pleural fluid. Atherosclerosis. No evidence of bowel obstruction or other acute abnormality. POS: [facility]
[2018-05-16 00:40] LABS: Troponin I 0.179 ng/mL (< 0.028)
[2018-05-16] MEDS ORDERED: Acetaminophen 325 MG TAB PO PRN (01:34)
[2018-05-16] MEDS ORDERED: Ondansetron HCl/PF 4 MG/2 ML Vial IVP PRN (01:34)
[2018-05-16] MEDS ORDERED: traMADol HCl 50 MG TAB PO PRN (01:35)
[2018-05-16] MEDS ORDERED: Nitroglycerin 2% Ointment 1 INCH/1 GM Packet ONE (01:35)
[2018-05-16] MEDS ORDERED: Dextrose 50% Abboject 50 ML SYRINGE SLOW IVP PRN (01:37)
[2018-05-16] MEDS ORDERED: HumaLOG 300 UNITS/3 ML VIAL SC PRN (01:37)
[2018-05-16] MEDS ORDERED: Dextrose 5% in Water 1,000 ML IV PRN (01:37)
[2018-05-16] MEDS ORDERED: hydrALAZINE 25 MG TAB PO SCH (01:45)
[2018-05-16] MEDS ORDERED: Carvedilol 25 MG TAB PO SCH (01:45)
[2018-05-16 03:19] VITALS: BMI 36.5
[2018-05-16 03:46] LABS: #Eosinphils 0.1 thou/uL (0.0-0.7); #Lymphocytes 0.9 thou/uL (1.20-3.40); #Monocytes 0.4 thou/uL (0.11-0.59); #Neutrophils 3.7 thou/uL (1.40-6.50); %Basophils 0.8 % (0.0-1.0); %Eosinophils 1.2 % (0.0-10.0); %Monocytes 8.2 % (0.0-10.0); %Neutrophils 71.8 % (42.0-75.0); Hemoglobin 9.2 g/dL (12.0-16.0); Mean Corpuscular HGB CONC 33.9 g/dL (32.0-36.0); Mean Corpuscular Hemoglobin 31.4 pg (27.0-31.0); Mean Corpuscular Volume 92.6 fL (78.0-98.0); Mean Platelet Volume 5.7 fL (7.4-10.4); Platelet Count 220 thou/uL (130-400); RBC Distribution Width 15.6 % (11.5-14.5); Red Blood Cell (RBC) Count 2.93 mill/uL (4.20-5.40); White Blood Cell (WBC) Count 5.2 thou/uL (4.8-10.8)
[2018-05-16 03:59] LABS: Anion Gap 13 mmol/L (10-20); BUN (Urea Nitrogen) 16 mg/dL (7.0-18.7); Calc. Creatinine Clearance 22 mL/min (70-130); Calcium 8.8 mg/dL (7.8-10.44); Carbon Dioxide 29 mmol/L (22-29); Chloride 97 mmol/L (98-107); Estimated GFR-MDRD 13; Glucose 96 mg/dL (70-105); Potassium 3.4 mmol/L (3.5-5.1); Sodium 136 mmol/L (136-145)
[2018-05-16 04:04] LABS: Troponin I 0.155 ng/mL (< 0.028)
--- NOTE | 2018-05-16 06:43 | HP ---
DATE OF ADMISSION: 05/15/2018 PRIMARY CARE PHYSICIAN: Dr. Kim from [facility]. CODE STATUS: FULL CODE. TIME OF EVALUATION: 1:20 a.m. CHIEF COMPLAINT: Chest pain. HISTORY OF PRESENT ILLNESS: This is a 48-year-old female patient with past medical history of end-st age renal disease, diabetes, hypertension, hyperlipidemia, came to the hospital after having epigastr ic chest pain, radiating to the chest, with no clear triggers, not alleviating factors, pain started around 9:00 p.m., associated with nausea, and one episode of vomiting. The pain was rated at 7/10. Troponins were mildly elevated at 0.172. REVIEW OF SYSTEMS: Constitutional: No fever or chills or generalized weakness. Respiratory: No co ugh, sputum production, or shortness of breath. Cardiovascular: No chest pain, palpitations, shortn ess of breath. Gastrointestinal: Epigastric pain, nausea, and vomiting. No diarrhea. 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 Genitourinary: No burning on urination. Patient still ma kes urine. Extremities: Bilateral leg swelling also lesion of calciphylaxis. All other systems wer e reviewed and negative except for the findings mentioned above. PAST MEDICAL HISTORY: As mentioned in the HPI. SOCIAL HISTORY: No smoking history. Drinks socially every week and no drug use. PAST SURGICAL HISTORY: Positive for tubal ligation, eye surgery, cardiac stent x1, amputation of the left foot, dialysis shunt in the left arm. PSYCHIATRIC HISTORY: No psych history. DRUG ALLERGIES: No known drug allergies. REPORTED MEDICATIONS: Effient, gabapentin, isosorbide, hydralazine, Coreg, amlodipine, pravastatin, Levemir, Zofran, tramadol. PHYSICAL EXAMINATION: VITAL SIGNS: On presentation blood pressure 165/84 with heart rate 89, respiratory rate was 19, temp erature 98.9, pain 9/10, oxygen saturation was 100 on room air. GENERAL APPEARANCE: The patient is alert, oriented, not in any acute distress. HEENT: Eye, normal conjuctivae. Moist oral mucosa. Anicteric. NECK: No JVD. RESPIRATORY: Bilateral air entry. No rales, no wheezing. Symmetric expansion. CARDIOVASCULAR: Normal rate, regular rhythm. No murmurs, no gallop. No edema. ABDOMEN: Soft, normal bowel sounds. He is distended, likely . MUSCULOSKELETAL: Baseline range of motion and strength. No tenderness. SKIN: Warm and dry. No palmar, no rash, no redness. The patient has left lower extremity lesions o n calciphylaxis. Peripheral pulses are present. Capillary refill seems to be intact. NEUROLOGIC: Baseline sensory. No evidence of any new focal weakness. Baseline speech. Cranial nerves seem to b e intact. PSYCHIATRIC: The patient is in good mood. No anxiety, optimal judgment. LABORATORY DATA: EKG was reviewed. The patient has normal sinus rhythm with ventricular rate 87, GA 128, QRS 88, QT corrected 478. This EKG was reviewed myself, no evidence of any acute ischemic even t. Abdomen and pelvis CT was done. The patient has moderate amount of ascites and right pleural eff usion, atherosclerosis. No evidence of bowel obstruction, no acute abnormalities. The labs were rev iewed. The patient has white count of 6.3, hemoglobin 10.5, MCV 92.7, platelet count 284. Sodium 13 6, potassium 3.6, chloride 95, carbon dioxide 32, anion gap 13, BUN 16, creatinine 4.45, GFR 13, gluc ose 116. Calcium 9.4, total bilirubin 1.4, troponin 0.172 went on to 0.179. Urine was done and the patient has a white count 4-6. ASSESSMENT AND PLAN: The patient will be placed in the hospital with following medical problems: 1. Chest pain, rule out acute coronary syndrome. Patient has mildly elevated troponin, unclear if t his is a cardiac event, we will consult Cardiology since patient is at high risk with history of prev ious coronary artery disease with stents, troponin, and also epigastric pain. We will follow C ardiology recommendation for any further intervention. We will reconcile home medications. 2. Chronic normocytic anemia likely secondary to chronic kidney failure, we will follow Nephrology f or further recommendations. 3. End-stage renal disease on hemodialysis, patient will follow with [facility] Giang might need arrangement for hemodialysis tomorrow since she is due on Saturday, Saturday, and Saturday. 4. Controlled diabetes. Glucose 116, we will reconcile home medications, adjust treatment as needed . 5. Urinary tract infection. Patient has white count of 4-6 in urine. We will cover her with antibi otics for now. We will follow cultures for further management. 6. Uncontrolled high blood pressure. Patient has 190/110 during my examination, we will reconcile h ome meds, will may need some BP medication for optimal control. 7. Hyperlipidemia. Patient will continue atorvastatin, no cholesterol diet is advised.
[2018-05-16] MEDS: Carvedilol 25 MG TAB PO SCH ×2 (08:33→21:06)
[2018-05-16] MEDS: hydrALAZINE 25 MG TAB PO SCH ×2 (08:33→21:06)
[2018-05-16] MEDS: Prasugrel 10 MG TAB PO SCH (08:33)
[2018-05-16] MEDS: Heparin 5,000 UNITS/ML VIAL SC SCH ×3 (08:33→21:05)
[2018-05-16] MEDS: Amlodipine 10 MG TAB PO SCH (08:33)
[2018-05-16] MEDS: Aspirin 325 MG TAB PO SCH (08:34)
[2018-05-16] MEDS: Sevelamer Carbonate 800 MG TAB PO SCH ×3 (08:34→16:25)
--- NOTE | 2018-05-16 11:38 | CON ---
DATE OF CONSULTATION: 05/16/2018 PRIMARY CARE PHYSICIAN: Dr. Jose Díaz PRIMARY PORT WARDEN: Dr. Leonor Topete REFERRING PHYSICIAN: Dr. Kathy Clement REASON FOR CARDIOLOGY CONSULTATION: Positive troponin level. HISTORY OF PRESENT ILLNESS: Ms. Lassiter is a 48 years old female with a significan t history of stage 5 chronic kidney disease with hemodialysis Saturday, Saturday, Saturday, hypertension , ischemic cardiomyopathy, EF of 25-29% by echo in 11/2017, coronary artery disease with a history of multiple stent placement, last one is in September 2016, high blood pressure, insulin-dependent diabet es, history of CVA, and chronic anemia. The patient reported the patient had chronic soreness in her abdomen for a few months. She was already seen by Dr. Reed at [facility] and she was supposed to have a colonoscopy which she has not had done yet at this moment. She started having th robbing and nagging-like pain in the upper abdominal, right below the patient's sternal bone for 2 da ys, but yesterday, the patient's symptoms were getting worse and she vomited once. The patient decid ed to present to the emergency department for further evaluation and treatment. During the episode, the patient denies chest pain or discomfort, tightness, heaviness in her chest, dizziness, lightheade dness, numbness or pain to the left upper extremity, to her neck or any other cardiac complaints. Th e patient had chronic shortness of breath which is due to change during the episode per patient. The patient had followed with a sponge buffer at the [facility] for possible ki dney transplant. The patient had echocardiograms done over there in 11/2017 which shows EF of 25-29% and moderate mitral annular calcification, mild pulmonary valve regurgitation and mild tricuspid regu rgitation, elevated left ventricular filling pressure and the PA systolic pressure was 46-51% mmHg. The patient had a history of multiple stent placements. The patient had a stent placement in the lef t circumflex in 07/2014, and mid LAD in 04/2017. At that time the patient's EF was 35-40% in 04/2017 . At this moment the patient denies any chest pain or discomfort, tightness or heaviness in her ches t, palpitation, fluttering, shortness of breath, dizziness, lightheadedness, nausea, vomiting or any other cardiac complaints. PAST MEDICAL HISTORY: 1. Three-vessel coronary artery disease with multiple stent placements which the last one was . 2. Chronic kidney disease with hemodialysis on Saturday, Saturday, Saturday since 09/2016. 3. Insulin-dependent diabetes. 4. Hypertension. 5. Hyperlipidemia. 6. Obesity. 7. History of a CVA in 2012 with mild weakness to the left side. 8. Chronic anemia. PAST SURGICAL HISTORY: 1. Bilateral tubal ligation. 2. Total hysterectomy in 2012. 3. Fissure placement in 2016. 4. Left second toe amputation in 2015. 5. Multiple stent placements, last one in September 2016. 6. Bilateral cataracts. 7. Right detachment surgery. 8. Cholecystectomy in 2016. FAMILY HISTORY: There is a significant family history of hypertension, diabetes in her family. The patient's cousin had underwent heart transplant. The patient's both side of grandparents has heart p annette with history of diabetes. SOCIAL HISTORY: The patient is single. She has 2 children who live well. She is living with her [facility] at this moment. She denied any smoking, illicit drug abuse. She used to be a social drinker, but she stopped 100% in 4 or 5 years. REVIEW OF SYSTEMS: Twelve point review of systems is negative, unless mentioned in the HPI or below. The patient did complain of occasional constipation and diarrhea. She wear eyeglasses. She wears de ntures on the upper part of denture. She sometimes has anxiety attack. ALLERGIES: She has no known drug allergies. HOME MEDICATIONS: The patient's home medications: Pravastatin 40 mg once a day, tramadol 50 mg 3 ti mes a day as needed, Renvela 800 mg 3 times a day, Imdur ER 60 mg once a day, hydralazine 25 mg twice a day, Levemir 25 mg at bedtime, carvedilol 12.5 mg twice a day, gabapentin 100 mg 3 times a day, am lodipine 10 mg once a day, Effient 10 mg once a day, Zofran 4 mg p.o. q.6h. p.r.n. PHYSICAL EXAMINATION: VITAL SIGNS: Blood pressure 149/85, pulse is 71, sinus rhythm. O2 sat 97% on room air, temperature 97.5, respiratory rate is 16. GENERAL: The patient is alert, oriented x4, not in acute distress. HEAD: Normocephalic and atraumatic. EYES: Extraocular muscle movement intact. She wears glasses. ENT: Oral and nasal mucosa are moist without lesion. NECK: Supple, normal range of motion, no JVD, no bruit or thrill noticed at the carotid artery site, bilateral carotid artery size. RESPIRATORY: Lungs are clear bilaterally. No wheezing, rales or rhonchi noted. CARDIOVASCULAR: Regular rate and rhythm, normal S1, S2. There are no S3, S4, no murmur, hives, thri ll noted. The bilateral dorsal pedis pulses are present, but there are 1+ pulses in the bilateral po sterior tibial and popliteal arteries. EXTREMITIES: No edema in the bilateral lower extremities. ABDOMEN: Tender to palpate, bowel sounds are present but hypoactive at this moment. SKIN: Warm and dry. No lesion noticed or bruise noted at this moment. NEUROLOGIC: Patient alert and oriented x4. Nonfocal. PSYCHIATRIC: Mood is appropriate. LABORATORY DATA: WBC 5.2, hemoglobin 9.2, hematocrit 27.1, platelets 220. Sodium 136, potassium 3.4 , BUN 16, creatinine 4.36, glucose 96. AST 11, ALT 8, CK-MB 2.9, troponin 0.172 and 0.179 and 0.155. ____ are 4. UA shows positive urine protein, ketones and blood, WBCs and bacteria. The patient's CT scan of abdomen and pelvis with IV contrast showed no evidence of bowel obstruction or other acute abnormalities, but showing a moderate amount of ascites and a right pleural fluid. ASSESSMENT AND PLAN: 1. Indeterminate troponin level. The patient's troponin is slightly elevated today with unknown miguel ology. At this moment the patient denied any cardiac complaints except nausea, which is chronic for this patient. However, due to this slightly elevated troponin I would like to keep the patient n.p.o . at this moment and would like to defer to Dr. Topete to decide whether the patient needs further card iac workup. At this moment, the patient n.p.o. and she is on heparin 500 units subcutaneous 3 times a day, aspirin 325 mg once a day and carvedilol 12.5 mg twice a day, but no TREVOR inhibitor or ARB due to a history of chronic kidney disease and also atorvastatin 10 mg once a day. 2. Ischemic cardiomyopathy with EF of 25-29% in 11/2017. The patient complained of a chronic shortn ess of breath which has not changed during this episode. The patient does not have any edema on the lower extremities. However, the patient had a CT scan of abdomen shows the patient has a moderate am ount of ascites, possibly due to congestive heart failure. Since the patient is a dialysis patient, we would like to defer to Nephrology for fluid management for this patient 3. Coronary artery disease with a history of multiple stent placements. The last stent placement wa s drug eluded stent placement was in 03/2017. The patient's condition is stable at this moment, we w ould like to continue to monitor on telemetry. 4. Chronic kidney disease with hemodialysis on Saturday, Saturday, Saturday, which is managed by nephro logist. 5. Hypertension, slightly elevated today; however, I would like to continue current blood pressure m edication management at this moment because the patient might have a cardiac catheterization, further cardiac workup this afternoon. 6. Diabetes type 2, which is managed by primary care doctor. 7. Chronic anemia which is stable at this moment. 8. Nausea, vomiting. The patient's condition is stable at this moment. She has not had any vomitin g since prior to this admission. 9. History of a cerebrovascular accident. The patient's condition is stable at this moment. 10. Hyperlipidemia. The patient is on a statin at this moment. 11. Decreased pulses in the bilateral lower extremities. The patient denied claudication or numbnes s or tingling to the lower extremities. Patient might need further evaluation for the symptom and th e diagnosis as an outpatient. Thank you very much for allowing the Cardiology Service to participate in care of this patient. We w ill follow along with the patient's care team and make further evaluation as appropriate.
--- NOTE | 2018-05-16 14:07 | CON ---
DATE OF CONSULTATION: 05/16/2018 NEPHROLOGY CONSULTATION REASON FOR CONSULTATION: End-stage renal disease, on maintenance hemodialysis. HISTORY OF PRESENT ILLNESS: A 48-year-old female who presented to the hospital with chest pain, even though the patient stated the pain was mostly in the abdomen not in the chest. The patient has gained some weight and is complaining of . The patient denies any headache, numbness, tingling or weakness. Denies any nausea, vomiting or chest pain. PAST MEDICAL HISTORY: Significant for hypertension, diabetes mellitus, end- stage renal disease, congestive heart failure, history of coronary artery disease, history of tunneled dialysis catheter, history of AV fistula. SOCIAL HISTORY: No alcohol or drug use. FAMILY HISTORY: Negative for ESRD. ALLERGIES: Reviewed. HOME MEDICATIONS: Reviewed. REVIEW OF SYSTEMS: A 15-point review of systems was performed and negative except for positives noted above. General: Weakness-. Head: Headache-. Neck : No swelling or lumps. Nose: No epistaxis or discharge. Eyes: No diplopia or pain. Respiratory: Dyspnea-. Cardiovascular: Chest pain-. Gastrointestinal: Nausea-. 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 Musculoskeletal: No joint pain. Neuropsychiatic Systems: No suicidal ideation. No ideation. Skin: Denies any rash or ulcer. Constitutional: No fever or chills. PHYSICAL EXAMINATION: GENERAL: The patient is awake and alert. VITAL SIGNS: Afebrile, pulse 71, breathing at 16, blood pressure 159/85. OBJECTIVE: See above. Awake, alert, in no acute distress. GENERAL APPEARANCE AND MENTAL STATUS: Fair. HEAD/NECK: Normocephalic. Atraumatic. EYES: EOMI. No deformity. EARS: Clear. No ulcers. NOSE: Intact. No lesions. MOUTH: Clear. No discharge. THROAT: Clear. No exudate. LUNGS: Clear. No crackles. CARDIAC: S1, S2. No rub. ABDOMEN: Benign. BS+. GENITALIA/RECTUM: Thompson absent. BACK/EXTREMITIES: Edema 0+ Ulcer- NEUROLOGICAL: Alert and motor intact. SKIN: Rash- Bruise- LYMPHATICS: Edema- Ulcer- LABORATORY DATA: Hemoglobin 9.2, potassium 3.4, creatinine 4.3. ASSESSMENT: 1. Stage 6 chronic kidney disease, on hemodialysis. 2. Hypertension, stable. 3. Anemia, stable. 4. Medication based on GFR are appropriate. 5. Ascites. PLAN: Ultrafiltration and advised the patient to limit fluid intake. MTDD
[2018-05-16] MEDS ORDERED: Insulin Glargine 25 UNITS in Pre-Filled Syringe 1 EACH SC SCH (21:00)
[2018-05-16] MEDS ORDERED: Non-Formulary Item 1 EACH (Levemir Flexpen [Levemir Flexpen] 25 UNITS) SQ SCH (21:00)
[2018-05-16] MEDS ORDERED: Atorvastatin Calcium 10 MG TAB PO SCH (21:00)
[2018-05-17] MEDS: Sevelamer Carbonate 800 MG TAB PO SCH ×2 (08:20→11:30)
[2018-05-17] MEDS: hydrALAZINE 25 MG TAB PO SCH (08:21)
[2018-05-17] MEDS: Carvedilol 25 MG TAB PO SCH (08:21)
[2018-05-17] MEDS: Amlodipine 10 MG TAB PO SCH (08:21)
[2018-05-17] MEDS: Aspirin 325 MG TAB PO SCH (08:21)
[2018-05-17] MEDS: Heparin 5,000 UNITS/ML VIAL SC SCH ×2 (08:22→14:08)
[2018-05-17] MEDS: Prasugrel 10 MG TAB PO SCH (08:22)
[2018-05-17 11:13] LABS: Anion Gap 15 mmol/L (10-20); BUN (Urea Nitrogen) 13 mg/dL (7.0-18.7); Calc. Creatinine Clearance 24 mL/min (70-130); Calcium 8.7 mg/dL (7.8-10.44); Carbon Dioxide 27 mmol/L (22-29); Chloride 96 mmol/L (98-107); Estimated GFR-MDRD 14; Glucose 96 mg/dL (70-105); Potassium 3.8 mmol/L (3.5-5.1); Sodium 134 mmol/L (136-145)
--- NOTE | 2018-05-17 11:33 | PRG ---
DATE OF SERVICE: 05/17/2018 SUBJECTIVE: This is a 48-year-old female being seen for end-stage renal disease. Patient denies any nausea, vomiting or chest pain. PHYSICAL EXAMINATION: GENERAL: Patient is awake, alert. VITAL SIGNS: Afebrile, pulse 75, breathing 16, blood pressure 124/71. HEAD/NECK: Normocephalic. Atraumatic. EYES: EOMI. No deformity. EARS: Clear. No ulcers. NOSE: Intact. No lesions. MOUTH: Clear. No discharge. THROAT: Clear. No exudate. LUNGS: Clear. No crackles. CARDIAC: S1, S2. No rub. ABDOMEN: Benign. BS+. GENITALIA/RECTUM: Thompson absent. BACK/EXTREMITIES: Edema 0+ Ulcer- NEUROLOGICAL: Alert and motor intact. SKIN: Rash- Bruise- LYMPHATICS: Edema- Ulcer- LABORATORY DATA: Show potassium 3.8. ASSESSMENT AND RECOMMENDATIONS: 1. Stage 6 chronic kidney disease. Continue hemodialysis Saturday, Saturday, Saturday. 2. Hypertension, stable. 3. Anemia, stable. 4. Medications based on glomerular filtration rate are appropriate.
[2018-05-17 11:35] VITALS: BP 139/85; TEMP 97.6
--- NOTE | 2018-05-17 14:32 | ADD-CON ---
DATE OF CONSULTATION: 05/16/2018 Please refer to the notes already dictated by the nurse practitioner, Kerry Soto. INDICATION FOR CONSULTATION: This is a 48-year-old female with history of known coronary artery dise ase, status post angioplasty and stent placement, end-stage renal disease, cardiomyopathy, was admitt ed to the hospital after she complained of epigastric discomfort. She says that she feels like she h as had too much fluid and not getting out enough fluid during her dialysis treatment. She denied any specific chest pain. We were asked to see her due to slightly elevated cardiac enzymes, which is ch ronic for her. She also has chronically elevated cardiac enzymes. I have seen the patient. I have reviewed the records and discussed the patient with my nurse practitioner and would agree with the as sessment and plan. At this time, I do not believe she is a candidate for any repeat cardiac catheter ization as she remains asymptomatic from a cardiac standpoint. She has recently been evaluated for p ossible renal transplant. She was turned down for the renal transplant due to her severe ischemic ca rdiomyopathy. She has suffered myocardial infarctions in the past and has diffuse coronary artery di sease after undergoing multiple stent placements. As far as the remainder of the note, please refer to the notes dictated by the nurse practitioner. I would agree with her assessment and plan. PHYSICAL EXAMINATION: GENERAL: Reveals a middle-aged obese female. VITAL SIGNS: Her blood pressure and vital signs are noted in the chart. CHEST: Clear to auscultation. CARDIOVASCULAR: Reveals a regular rate and rhythm. She has morbid obesity. EXTREMITIES: No significant clubbing, cyanosis or edema. GASTROINTESTINAL: She does have positive bowel sounds noted. Abdomen does appear to be morbidly obe se. IMPRESSION AND PLAN: 1. End-stage chronic kidney disease for which she continues on hemodialysis. She is not a transplan t candidate due to cardiomyopathy. 2. Severe three-vessel coronary artery disease after stent placement. She appears to be relatively stable. 3. Chronic elevation of the cardiac enzymes, most likely due to her end-stage renal disease. 4. Hypertension. This is under relatively good control majority of the time. 5. History of diabetes. This will be monitored by the primary service. She has also had a history of a cerebrovascular accident in the past and has some mild weakness noted on the left side as well a s chronic anemia due to her end-stage renal disease. At this time, the overall cardiac status despite the multiple problems appear to be relatively stable . If there are any changes, we will be more than happy to continue to follow her in the hospital.
--- NOTE | 2018-05-17 22:54 | DIS ---
DATE OF ADMISSION: 05/16/2018 DATE OF DISCHARGE: 05/17/2018 HOSPITAL COURSE: Patient is a very pleasant 48-year-old female with significant past medical history of coronary artery disease. She has a history of hypertension, end-stage renal disease on dialysis, diabetes, who initially presented to the hospital with epigastric pain radiating up to her chest are a. Patient initially underwent a CT abdomen and pelvis, which indicated some ascites and some right pleural effusion, otherwise it was normal. Patient also did have mild elevated troponins, for which she was seen by Cardiology. Cardiology did not think this was related secondary to any kind of ische pranav etiology. Patient underwent dialysis. Patient currently denies any nausea, vomiting, or any abd ominal pain. She will be discharged home. She will follow up with her PCP and will continue her reg ular home medications. DISCHARGE MEDICATIONS: Patient is on Neurontin 100 mg t.i.d., Zofran 4 mg q.6 hours p.r.n., Ultram 5 0 mg t.i.d. p.r.n., Renvela 800 mg t.i.d., pravastatin 40 mg at bedtime, Levemir 25 units at bedtime, amlodipine 10 units daily, hydralazine 25 mg b.i.d., Coreg 12.5 b.i.d., isosorbide 60 mg daily, and Effient 10 mg p.o. daily. Again, the patient has been seen by Cardiology okay for discharge. She was also seen by Nephrology a nd was okay for discharge. She will follow up outpatient for her dialysis. PHYSICAL EXAMINATION: VITAL SIGNS: Temperature 97.6, 55, 139/85, 16. GENERAL: She is awake, alert, oriented x3, does not appear in distress. CARDIOVASCULAR: S1, S2 present. No murmurs, rubs, or gallops. ABDOMEN: Large. Bowel sounds are present x2. She does have some abdominal scars. EXTREMITIES: No edema.
== END 2018-05-17 15:15 | disposition home or self-care (01) ==
LOC: ERS 19:57 → 2NO 05-16 01:14
PROVIDERS: ADMIT Hospitalist; ATTEND Hospitalist
DX: R07.9 Chest pain, unspecified (principal); I13.2 Hypertensive heart and chronic kidney disease with heart failure and with stage 5 chronic kidney disease, or end stage renal disease; E11.22 Type 2 diabetes mellitus with diabetic chronic kidney disease; N18.6 End stage renal disease; I50.9 Heart failure, unspecified; I25.10 Atherosclerotic heart disease of native coronary artery without angina pectoris; D64.9 Anemia, unspecified; E78.5 Hyperlipidemia, unspecified; N39.0 Urinary tract infection, site not specified; R18.8 Other ascites; Z99.2 Dependence on renal dialysis; Z95.5 Presence of coronary angioplasty implant and graft; Z79.4 Long term (current) use of insulin; Z79.899 Other long term (current) drug therapy
CPT/HCPCS: 74177; 80048 ×2; 80053; 82553; 82962 ×2; 83690; 84484 ×2; 85025 ×2; 87086; 93005; 99285; G0378 ×3; 36415; 36416; 81003; 81015; 90935; G0257; J1644

== ENCOUNTER 2019-01-06 09:33 | Day surgery (SDC) | payer MEDICARE ==
[2019-01-05 15:37] VITALS: BMI 35.4
--- NOTE | 2019-01-06 13:58 | OP ---
DATE OF PROCEDURE: 01/06/2019 PROCEDURES PERFORMED: Esophagogastroduodenoscopy with biopsy and aborted colonoscopy. PREOPERATIVE DIAGNOSES: Dyspepsia, abdominal distention, diarrhea, and incontinence. DESCRIPTION OF PROCEDURE: Informed consent was obtained from the patient. She was sedated with total intravenous anesthesia. The bite block was placed and the endoscope was advanced easily to the second portion of the duodenum and retroflexion was performed in the stomach. The esophagus was normal. The GE junction was normal. The stomach had patchy erythematous moderate gastritis in the antrum. Biopsies were obtained from the antrum to rule out H. pylori. Retroflexed views in the stomach were normal. The pylorus and first and second portions of the duodenum were normal. The patient was turned around. Rectal exam was performed and was normal. The colonoscope was advanced to the ascending colon. There was a large amount of solid fibrous stool throughout the colon and the prep was inadequate and poor and the procedure was aborted. IMPRESSION: 1. Moderate antral erythematous gastritis. Biopsies obtained to rule out Helicobacter pylori. 2. Otherwise, normal esophagogastroduodenoscopy. 3. Poor colon prep. The colonoscopy was aborted due to the poor prep. 4. The patient desaturated briefly during the procedure and received bag ventilation with rapid improvement. RECOMMENDATIONS: 1. Await histopathology. 2. Reschedule colonoscopy. 3. Start MiraLAX 17 g daily. Job ID: [id number]
[2019-01-06] MEDS ORDERED: hydrALAZINE 20 MG/ML VIAL ONE (14:07)
[2019-01-06] MEDS ORDERED: PROPOFOL 200 MG/20 ML VIAL ONE (14:31)
[2019-01-06] MEDS ORDERED: Lidocaine 1% PF 5 ML VIAL ONE (14:31)
== END 2019-01-06 15:23 | disposition home or self-care (01) ==
LOC: SDC 09:33
PROVIDERS: ATTEND Internal Medicine Gastroenterology
PROC: 0DB58ZX Excision of Esophagus, Via Natural or Artificial Opening Endoscopic, Diagnostic (ICD-10-PCS; principal; 2019-01-06)
PROC: 0DJD8ZZ Inspection of Lower Intestinal Tract, Via Natural or Artificial Opening Endoscopic (ICD-10-PCS; 2019-01-06)
DX: K29.50 Unspecified chronic gastritis without bleeding (principal); R19.7 Diarrhea, unspecified; I25.10 Atherosclerotic heart disease of native coronary artery without angina pectoris; I42.9 Cardiomyopathy, unspecified; N18.6 End stage renal disease; Z53.8 Procedure and treatment not carried out for other reasons
CPT/HCPCS: 88305; 88312; J0360; J2001; J2704

== ENCOUNTER 2019-01-20 07:26 | Day surgery (SDC) | payer MEDICARE ==
[2019-01-19 14:08] VITALS: BMI 35.4
[2019-01-20] MEDS ORDERED: Labetalol HCl 100 MG/20 ML VIAL ONE (08:20)
--- NOTE | 2019-01-20 11:45 | OP ---
DATE OF PROCEDURE: 01/20/2019 PROCEDURES PERFORMED: Colonoscopy with biopsy. PREOPERATIVE DIAGNOSIS: Chronic diarrhea. DESCRIPTION OF PROCEDURE: Informed consent was obtained from the patient. She was sedated with total intravenous anesthesia. The rectal exam revealed decreased anal sphincter tone. The colonoscope was advanced to the terminal ileum without difficulty. The mucosa of the terminal ileum was normal. The ileocecal valve and appendiceal orifice were clearly identified. The colonic mucosa was normal throughout. Random biopsies were taken in the right and left colon to rule out microscopic colitis. Retroflex views in the rectum revealed a small to moderate internal hemorrhoids. However, these views were difficult due to inability to hold the air well. IMPRESSION: 1. Small internal hemorrhoids to moderate internal hemorrhoids. 2. Otherwise normal ileocolonoscopy. Random biopsies taken from the right and left colon to rule out microscopic colitis. RECOMMENDATIONS: 1. Await histopathology. 2. Follow up in GI Clinic. 3. Repeat colonoscopy in 10 years for screening. Job ID: [id number]
[2019-01-20] MEDS ORDERED: PROPOFOL 200 MG/20 ML VIAL ONE (15:37)
[2019-01-20] MEDS ORDERED: Lidocaine 1% PF 5 ML VIAL ONE (15:37)
== END 2019-01-20 11:52 | disposition home or self-care (01) ==
LOC: SDC 07:26
PROVIDERS: ATTEND Internal Medicine Gastroenterology
PROC: 0DBK8ZX Excision of Ascending Colon, Via Natural or Artificial Opening Endoscopic, Diagnostic (ICD-10-PCS; principal; 2019-01-20)
PROC: 0DBM8ZX Excision of Descending Colon, Via Natural or Artificial Opening Endoscopic, Diagnostic (ICD-10-PCS; 2019-01-20)
DX: K52.9 Noninfective gastroenteritis and colitis, unspecified (principal); K64.8 Other hemorrhoids; I25.10 Atherosclerotic heart disease of native coronary artery without angina pectoris; I13.2 Hypertensive heart and chronic kidney disease with heart failure and with stage 5 chronic kidney disease, or end stage renal disease; E11.22 Type 2 diabetes mellitus with diabetic chronic kidney disease; N18.6 End stage renal disease; I50.9 Heart failure, unspecified; Z79.899 Other long term (current) drug therapy; Z95.5 Presence of coronary angioplasty implant and graft
CPT/HCPCS: 88305; J2001; J2704

== ENCOUNTER 2019-05-14 09:51 | Day surgery (SDC) | payer OTHER ==
[2019-05-13 13:50] VITALS: BMI 36.2
[~2019-05-14 09:51] MED LIST: Fentanyl 100 MCG/2 ML VIAL ONE; Fluorouracil 100 MG, Enoxaparin Sodium 25 MG, EPINEPHrine 0.3 MG in Ophthalmic Irrigati... IRR SCH; Midazolam HCl 2 mg/2 ml Vial ONE
[2019-05-14] MEDS ORDERED: Phenylephrine 2.5% Ophth Soln 5 ML BOT ONE (10:53)
[2019-05-14] MEDS ORDERED: Cyclopentolate 1% Opth Drop 2 ML BOT ONE (10:53)
[2019-05-14] MEDS ORDERED: Lidocaine 4% PF 5 ML AMP ONE (12:04)
[2019-05-14] MEDS ORDERED: Bupivacaine 10 ML VIAL ONE (12:04)
[2019-05-14] MEDS ORDERED: PROPOFOL 200 MG/20 ML VIAL ONE (12:04)
[2019-05-14] MEDS ORDERED: Labetalol HCl 100 MG/20 ML VIAL ONE (13:55)
--- NOTE | 2019-05-14 20:30 | OP ---
DATE OF PROCEDURE: 05/14/2019 PREOPERATIVE DIAGNOSIS: Tractional retinal detachment, left eye. POSTOPERATIVE DIAGNOSIS: Tractional retinal detachment, left eye. PROCEDURES PERFORMED: Pars plana vitrectomy, tractional retinal detachment repair of left eye. ANESTHESIA: Local with monitored anesthesia care. PROCEDURE IN DETAIL: The patient was identified in the preoperative holding area. Appropriate informed consent for the planned surgical procedure on the left eye had been obtained. The patient was transported to the operative suite. Appropriate cardiopulmonary monitoring was established. Local anesthesia was obtained using retrobulbar modified Van Lint lid block using 50:50 mixture of 4% lidocaine and 0.75% bupivacaine. The patient was prepped and draped in usual sterile manner for ophthalmic surgery of left eye. Lid speculum was placed in left eye. A 25-gauge trocar was placed in conjunctiva and sclera superotemporally, inferotemporally, and supranasally. Infusion line was placed inferotemporally. Light pipe vitreous cutter was inserted to the eye. Core vitrectomy was performed. Posterior hyaloid face was incised from the attached proliferans trimmed 360 degrees. Proliferation was removed from the retinal surface by direct traction in gripping forceps and vitreous cutter. Panretinal photocoagulation was placed in all nonmacular areas of the retina. No holes, breaks, or tears were identified. Trocars were removed. The eye was noted to retain pressure well. Retrobulbar Kenalog and sequential Ancef were placed. Antibiotic ointment was placed. The eye was patched and shielded. The patient was taken to postoperative recovery unit in good condition, having suffered no immediate perioperative complications. The patient was instructed to keep the patch and the shield on, avoid lifting or bending. Followup appointment with Dr. Truong. Job ID: [id number]
== END 2019-05-14 15:15 | disposition home or self-care (01) ==
LOC: SDC 09:51
PROVIDERS: ATTEND Ophthalmology Retina Specialist
PROC: 08T53ZZ Resection of Left Vitreous, Percutaneous Approach (ICD-10-PCS; principal; 2019-05-14)
PROC: 08B53ZZ Excision of Left Vitreous, Percutaneous Approach (ICD-10-PCS; principal; 2019-05-14)
DX: H33.42 Traction detachment of retina, left eye (principal); E11.9 Type 2 diabetes mellitus without complications
CPT/HCPCS: 36416; J0171; J1650; J2001; J2250; J2704; J3010; J3490; J9190

== ENCOUNTER 2019-06-06 21:01 | Inpatient (IN) | payer MEDICARE, OTHER ==
[~2019-06-06 21:01] MED LIST changes: -Fentanyl 100 MCG/2 ML VIAL ONE; -Fluorouracil 100 MG, Enoxaparin Sodium 25 MG, EPINEPHrine 0.3 MG in Ophthalmic Irrigati... IRR SCH; +ISOVUE-370 76%-LOCM 1 ML ONE; -Midazolam HCl 2 mg/2 ml Vial ONE
[2019-06-06 21:53] LABS: #Basophils 0.1 thou/uL (0.0-0.2); #Eosinphils 0.2 thou/uL (0.0-0.7); #Monocytes 0.4 thou/uL (0.11-0.59); #Neutrophils 3.6 thou/uL (1.40-6.50); %Basophils 1.3 % (0.0-1.0); %Eosinophils 3.2 % (0.0-10.0); %Lymphocytes 18.4 % (21.0-51.0); %Monocytes 7.4 % (0.0-10.0); %Neutrophils 69.7 % (42.0-75.0); Hemoglobin 10.8 g/dL (12.0-16.0); Mean Corpuscular HGB CONC 32.2 g/dL (32.0-36.0); Mean Corpuscular Hemoglobin 31.6 pg (27.0-31.0); Mean Corpuscular Volume 97.9 fL (78.0-98.0); Mean Platelet Volume 6.6 fL (7.4-10.4); Platelet Count 201 thou/uL (130-400); RBC Distribution Width 14.8 % (11.5-14.5); Red Blood Cell (RBC) Count 3.43 mill/uL (4.20-5.40); White Blood Cell (WBC) Count 5.2 thou/uL (4.8-10.8)
[2019-06-06 21:57] LABS: INR-International Normal Ratio 1.2; PTT 36.2 SEC (22.9-36.1); Prothrombin Time 15.5 SEC (12.0-14.7)
--- NOTE | 2019-06-06 21:57 | CT ---
Head CT without contrast: 06/06/2019 COMPARISON: None HISTORY: Slurred speech, left-sided facial droop TECHNIQUE: Axial CT imaging at 5 mm intervals from vertex through skull base without contrast FINDINGS: The imaged paranasal sinuses and mastoid air cells are well aerated. There is no displaced calvarial fracture. No intracranial hemorrhage, midline shift, mass effect, or ventricular enlargement. IMPRESSION: No acute findings. Dr. Moreno made aware at 9:50 PM 06/06/2019.
--- NOTE | 2019-06-06 22:11 | CT ---
CT angiogram head CT angiogram neck: 06/06/2019 COMPARISON: None HISTORY: Altered mental status, left-sided weakness, abnormal speech TECHNIQUE: Axial CT imaging at 1.25 mm intervals from the vertex through the lung apices with IV cont rast using CT angiogram protocol. Coronal and sagittal 3-D reformatted imaging obtained. FINDINGS: The visualized lung apices are unremarkable. There is exophthalmus bilaterally. Limited assessment for aerodigestive tract abnormality is grossly unremarkable. Retroantral and parap haryngeal fat demonstrate no acute findings. Parotid and submandibular glands appear grossly unremarkable. The origin of the innominate artery, right common carotid artery, right subclavian artery, left commo n carotid artery, and left subclavian artery are patent. There is mild stenosis at the origin of the left vertebral artery. The right vertebral artery is hypoplastic and difficult to visualize proxi cooper secondary to venous contamination. The left vertebral artery is dominant. Bilateral vertebral arteries are patent. On the basis of NASCET criteria, there is no hemodynamically significant stenosis seen involving the common carotid artery or the internal carotid artery on either side. Bilateral internal carotid arteries are quite tortuous, especially distally. There is atherosclerotic calcification at the origi n of bilateral internal carotid arteries, right greater than left. There is atherosclerotic calcification involving the cavernous carotid arteries bilaterally. The A1 segment is patent bilaterally. Distal MATTHIAS branches appear grossly unremarkable. The M1 segment appears patent on the left. The left MCA bifurcation and distal MCA branches appear un remarkable. The right M1 segment and MCA bifurcation appears unremarkable as do the distal MCA branches. The basilar artery is patent. Branches of the basilar artery appear unremarkable. No saccular aneurys m or central vascular occlusion is seen involving the anterior or the posterior circulation. Review of the osseous structures demonstrate no acute findings. IMPRESSION: No intracranial arterial occlusion. No hemodynamically significant stenosis within the ne ck on the basis of NASCET criteria. Results called to Dr. Moreno at 10:05 PM 06/06/2019.
[2019-06-06 22:13] LABS: ALT (SGPT) 13 U/L (8-55); AST (SGOT) 19 U/L (5-34); Alkaline Phosphatase 135 U/L (40-150); Anion Gap 15 mmol/L (10-20); BUN (Urea Nitrogen) 35 mg/dL (7.0-18.7); Bilirubin, Total 0.6 mg/dL (0.2-1.2); Calc. Creatinine Clearance 0 mL/min (70-130); Calcium 9.5 mg/dL (7.8-10.44); Carbon Dioxide 29 mmol/L (22-29); Chloride 95 mmol/L (98-107); Estimated GFR-MDRD 7; Globulin 4.4 g/dL (2.4-3.5); Glucose 134 mg/dL (70-105); Potassium 4.9 mmol/L (3.5-5.1); Protein, Total 8.4 g/dL (6.0-8.3); Sodium 134 mmol/L (136-145)
--- NOTE | 2019-06-06 22:14 | RAD ---
Portable frontal chest radiograph: 06/06/2019 COMPARISON: 08/15/2017 HISTORY: Dizziness, syncope, difficulty speaking FINDINGS: Cardiac silhouette is prominent, suggesting magnification and/or enlargement. Mild pulmonar y vascular prominence. No pneumothorax or pleural fluid. No focal consolidation or alveolar edema. IMPRESSION: No focal consolidation or alveolar edema.
[2019-06-06 22:20] LABS: Acetaminophen Less than 6.0 mcg/mL (10.0-30.0); Alcohol Less than 10 mg/dL (Less than 10); Salicylate Less than 8.0 mg/dL (15.0-30.0)
[2019-06-06 22:33] LABS: CKMB 2.9 ng/mL (0-6.6)
[2019-06-06 22:34] LABS: Bacteria/HPF None Seen HPF (None Seen); Bilirubin Negative (Negative); Blood, Urine 1+ (Negative); Clarity Clear (Clear); Glucose, Urine (Dipstick) 50 mg/dL (Negative); Leukocyte Negative Leu/uL (Negative); Nitrite Negative (Negative); Protein, Urine (Dipstick) 300 mg/dL (Neg-Trace); RBC/HPF 0-3 HPF (0-3); Squamous Epithelial 0-3 HPF (0-3); Urobilinogen Normal mg/dL (Less than 2); WBC/HPF 0-3 HPF (0-3)
[2019-06-06 22:46] LABS: Amphetamine Not Detected (NotDetected); Barbiturates Screen Not Detected (NotDetected); Benzodiazepine Screen Not Detected (NotDetected); Cocaine Metabolite Screen Not Detected (NotDetected); Medtox Control Line Valid? VALID (VALID); Medtox Reader # READER 4; Methadone Not Detected (NotDetected); Methamphetamine Not Detected (NotDetected); Opiate Screen Detected (NotDetected); Oxycodone Screen Not Detected (NotDetected); Phencyclidine (PCP) Not Detected (NotDetected); THC/Cannabinoid Screen Not Detected (NotDetected); Tricyclic Screen Not Detected (NotDetected)
[2019-06-06] MEDS ORDERED: hydrALAZINE 20 MG/ML VIAL ONE (22:51)
[2019-06-07] MEDS ORDERED: Aspirin Chewable 81 MG TAB ONE (02:33)
[2019-06-07 04:57] VITALS: BMI 36.3
[2019-06-07] MEDS ORDERED: Calcium Carbonate 500 MG ChewTAB PO PRN (07:30)
[2019-06-07] MEDS ORDERED: Ondansetron ODT 4 MG TAB PO PRN (07:30)
[2019-06-07] MEDS ORDERED: Acetaminophen 325 MG TAB PO PRN (07:30)
[2019-06-07] MEDS ORDERED: traMADol HCl 50 MG TAB PO PRN (07:30)
[2019-06-07] MEDS ORDERED: Ondansetron PF 4 MG/2 ML Vial IVP PRN (07:30)
[2019-06-07] MEDS ORDERED: hydrALAZINE 20 MG/ML VIAL SLOW IVP PRN (07:33)
[2019-06-07] MEDS ORDERED: Benzonatate 100 MG CAP PO PRN (07:33)
[2019-06-07] MEDS ORDERED: diphenhydrAMINE 25 MG CAP PO PRN (07:33)
[2019-06-07] MEDS ORDERED: Docusate 100 MG CAP PO PRN (07:33)
[2019-06-07] MEDS ORDERED: Aspirin 325 mg Enteric Coated Tablet PO SCH (08:15)
[2019-06-07] MEDS ORDERED: Famotidine 20 MG TAB PO SCH (09:00)
[2019-06-07] MEDS: Gabapentin 100 MG CAP PO SCH ×3 (09:55→20:34)
[2019-06-07] MEDS: Amlodipine 10 MG TAB PO SCH (09:56)
[2019-06-07] MEDS: hydrALAZINE 25 MG TAB PO SCH ×3 (09:56→20:33)
[2019-06-07] MEDS: Heparin 5,000 UNITS/ML VIAL SC SCH ×3 (09:57→20:32)
--- NOTE | 2019-06-07 13:07 | HP ---
CHIEF COMPLAINT: Dizziness, trouble speaking, and left-sided numbness and tingling. HISTORY OF PRESENT ILLNESS: Ms. Lassiter is a pleasant 49-year-old female with past medical history of end-stage renal disease, on hemodialysis, hypertension, neuropathic pain, and osteoarthritis, who presents with acute onset of dizziness, trouble speaking, and tingling in the left side of the face and arm. I find the patient on the Stroke Unit and she is resting in bed, breathing well on room air, in no apparent distress. The patient states that she is feeling much better since arrival. The patient states that she was eating dinner with family at the local [employer] when she had acute onset of weakness, trouble speaking, and left-sided tingling in her face and her arm. The patient states that those symptoms have improved, though she states that they have not gone away completely. The patient does endorse a past medical history of a stroke in 2012 and states that she does have weakness on the left side at baseline. The patient is talking in full sentences and no appreciated dysarthria is present at this time. The patient has been compliant with her hemodialysis and states that she had a good session of dialysis on Saturday in which 4 L of fluid was removed. The patient did have problems with her AV fistula access on Saturday and did not have a good session of dialysis, but then had successful declotting of her dialysis access and then had a good session on Saturday. The patient does not appear fluid overloaded or volume overloaded at this time. REVIEW OF SYSTEMS: A 10-point review of systems was performed and negative aside from what mentioned in the history of present illness. PAST MEDICAL HISTORY: 1. End-stage renal disease, on hemodialysis. 2. Hypertension. 3. Neuropathic pain. 4. Osteoarthritis. 5. Elevated BMI. MEDICATIONS: 1. Zofran 4 mg one tablet q.6 hours p.r.n. nausea and vomiting. 2. Gabapentin 100 mg one tablet p.o. t.i.d. 3. Amlodipine 10 mg one tablet p.o. daily. 4. Tramadol 50 mg one tablet p.o. q.6 hours p.r.n. pain. 5. Hydralazine 25 mg one tablet p.o. t.i.d. ALLERGIES: NO KNOWN DRUG ALLERGIES. PHYSICAL EXAMINATION: VITAL SIGNS: Temperature 97.5, pulse 85, respirations 18, O2 saturation 97% on room air, and blood pressure 142/88. GENERAL: The patient is alert and oriented x3 and has fair insight into her clinical condition. The patient has no acute cardiopulmonary distress. The patient is cooperative. HEENT: Head is normocephalic and atraumatic. Pupils are equally round and reactive to light and accommodation. Extraocular muscles intact. Vision is grossly intact. There are no appreciated exudates or inflammation on the tonsils. CARDIAC: S1 and S2 present. No appreciated murmurs, rubs, or gallops. There is 1+ lower extremity edema. Extremities are warm and well perfused. LUNGS: Clear to auscultation bilaterally without appreciated wheezing, rales, or rhonchi. ABDOMEN: Soft, nontender, and nondistended without focal guarding or rigidity. No appreciated masses or abdominal bruit. MUSCULOSKELETAL: Adequate alignment of the spine. Range of motion in the spine and extremities are grossly intact. No appreciated joint erythema or tenderness. BACK: There is mild tenderness to the spinal muscles in the lumbar area. No decrease in range of motion. EXTREMITIES: No significant deformity or joint abnormality. 1+ lower extremity edema. Peripheral pulses intact. NEUROLOGIC: Cranial nerves II through XII are grossly intact. Strength is symmetric and intact. There is subjective numbness and tingling on the left side of the face and left arm. SKIN: Normal in color, texture, and turgor. There are no appreciated lesions or rashes. PSYCHIATRIC: The patient is alert and oriented to person, location, and time. The patient has demonstrated good judgment and reason. No hallucinations. The patient has a normal affect and there are no abnormal behaviors. LABORATORY DATA: WBC 5.2, RBC 3.43, hemoglobin 10.8, hematocrit 33.6, MCV 97.9, and platelets 201. PT 15.5, INR 1.2, and PTT 36.2. Sodium 134, potassium 4.9, chloride 95, carbon dioxide 29, anion gap 15, BUN 35, creatinine 7.18, estimated GFR 7, glucose 134, calcium 9.5, total bilirubin 0.6, AST 19, ALT 13, and alkaline phosphatase 135. Troponin 0.160. Serum total protein 8.4, albumin 4.0. Urinalysis; urine color is yellow, urine clarity clear, urine pH 8.0, urine specific gravity 1.020, urine protein 300, urine glucose 50, urine ketones negative, urine blood 1+, urine nitrite negative, urine bilirubin negative, urine urobilinogen normal, urine leukocyte esterase negative, urine rbc 0 to 3, urine wbc 0 to 3, urine squamous epithelial cells 0 to 3, urine bacteria not seen. Toxicology; salicylates negative. Urine opiates detected. Urine oxycodone negative. Urine methadone negative. Urine propoxyphene negative. Urine acetaminophen less than 6.0. Urine barbiturates not detected. Urine tricyclics not detected. Urine PCP not detected. Urine amphetamines not detected. Urine methamphetamine not detected. Urine benzodiazepines not detected. Urine cocaine not detected. Urine cannabinoids not detected. Plasma alcohol less than 10.0. RADIOGRAPHIC IMAGING: CT brain; impression, no acute finding. CT viejas of [place] angio with contrast; impression, no intracranial arterial occlusion. No hemodynamically significant stenosis within the neck based on NASCET criteria. Chest x-ray; impression, no focal consolidation or alveolar edema. ASSESSMENT AND PLAN: 1. Transient ischemic attack. The patient does have history of past cerebrovascular accident and states that her symptoms did feel like her last stroke. The patient does have left-sided motor weakness at baseline per the patient. The patient with subjective numbness and tingling of the left side of the face and the left arm. The patient will have MRI of the brain, echocardiogram, and metabolic workup. Pending above workup, we will consider consultation to Stroke Team and neurologist. The patient will need stroke regimen including aspirin, statin, and TREVOR inhibitor as she has past medical history of cerebrovascular accident. 2. End-stage renal disease, on hemodialysis. The patient has been compliant with her hemodialysis and have a good session on Saturday with 4 L of fluid removed. We will place the patient on a renal diet. Fluid restrictions. Nephrology consultation requested for dialysis management. Electrolyte management. 3. Malignant hypertension. We will restart the patient's home medications and adjust regimen as able to control blood pressure. 4. History of cerebrovascular accident in 2012 with residual left-sided deficits per the patient. The patient will need stroke regimen. Aspirin, statin, and TREVOR inhibitor. 5. Neuropathic pain. 6. Elevated BMI. Job ID: [id number]
--- NOTE | 2019-06-07 13:24 | MRI ---
EXAM: MRI Brain WO Con PROVIDED CLINICAL HISTORY: TIA COMPARISON: CT brain 06/06/2019 FINDINGS: The ventricular system appears normal in size and morphology. There is no evidence for intracranial h emorrhage. There is no evidence for restricted diffusion to suggest recent infarction. Scattered punctate areas of FLAIR and T2 hyperintensity involve the cerebral white matter, statistically reflec ting chronic microvascular ischemic change. Appropriate flow voids are seen within the major intracranial vessels. The extracranial soft tissues demonstrate no significant abnormality. Loss of t he normal T1 marrow signal intensity throughout the skull and visualized cervical spine may reflect red marrow reconversion, though marrow replacement processes cannot be excluded. IMPRESSION: 1. No evidence for restricted diffusion to suggest recent infarction. 2. Chronic microvascular ischemic change.
[2019-06-07] MEDS ORDERED: Dextrose 5% in Water 1,000 ML IV PRN (13:37)
[2019-06-07] MEDS ORDERED: Dextrose 50% Abboject 50 ML SYRINGE SLOW IVP PRN (13:37)
[2019-06-07] MEDS ORDERED: HumaLOG 300 UNITS/3 ML VIAL SC PRN ×2 (13:37)
--- NOTE | 2019-06-07 15:39 | CON ---
DATE OF CONSULTATION: 06/07/2019 CONSULTING PHYSICIAN: Dr. Mtz. REASON FOR CONSULTATION: End-stage renal disease evaluation. REASON FOR ADMISSION: Dizziness. HISTORY OF PRESENT ILLNESS: This is a 49-year-old female with history of hypertension, end-stage renal disease, neuropathy, came into the hospital with trouble speaking, has been evaluated. Nephrology was consulted for dialysis, especially after the contrast exposure. The patient denies any chest pain or palpitation. No fever or chills. PAST MEDICAL HISTORY: Positive for end-stage renal disease, hypertension, neuropathy, osteoarthritis, and obesity. PAST SURGICAL HISTORY: Dialysis access placement. HOME MEDICATIONS: Reviewed. ALLERGIES: NO KNOWN DRUG ALLERGIES. SOCIAL HISTORY: No smoking, alcohol, or illicit drugs. FAMILY HISTORY: No history of kidney disease. REVIEW OF SYSTEMS: CONSTITUTIONAL: Negative for weight loss or gain, ability to conduct usual activities. SKIN: Negative for rash, itching. EYES: Negative for double vision, pain. ENT/MOUTH: Negative for nose bleeding, neck stiffness, pain, tenderness. CARDIOVASCULAR: Negative for palpitations, dyspnea on exertion, orthopnea. RESPIRATORY: Negative for shortness of breath, wheezing, cough, hemoptysis, fever or night sweats. GASTROINTESTINAL: Negative for poor appetite, abdominal pain, heartburn, nausea, vomiting, constipation, or diarrhea. GENITOURINARY: Negative for urgency, frequency, dysuria, nocturia. MUSCULOSKELETAL: Negative for pain, swelling. NEUROLOGIC/PSYCHIATRIC: Negative for anxiety, depression. ALLERGY/IMMUNOLOGIC: Negative for skin rash, bleeding tendency. PHYSICAL EXAMINATION: GENERAL: This is an obese female, in no apparent distress. VITAL SIGNS: Temperature 97.6, pulse 80, respiratory rate 18, and blood pressure 162/79. HEENT: Atraumatic, normocephalic. Oral mucosa is moist. NECK: Supple. CARDIOVASCULAR: S1 and S2. Regular rate and rhythm. RESPIRATORY: Clear. GASTROINTESTINAL: Abdomen is soft. MUSCULOSKELETAL: 1+ edema. DERMATOLOGIC: No skin rash. NEUROLOGIC: Alert and awake. PSYCHIATRIC: Mood and affect normal. LABORATORY DATA: Hemoglobin is 10.8. Potassium 4.9, BUN is 35, and creatinine is 7.9. ASSESSMENT AND PLAN: 1. End-stage renal disease. Continue on dialysis as tolerated. 2. Edema, controlled. 3. Hypertension. 4. Anemia of chronic disease. Plan to have 2 hours of dialysis today and then continue dialysis on Saturday, Saturday, and Saturday as tolerated. We will follow. Thank you for the consult. Job ID: [id number]
[2019-06-07] MEDS ORDERED: Atorvastatin Calcium 10 MG TAB PO SCH (21:00)
[2019-06-08 05:25] LABS: #Basophils 0.1 thou/uL (0.0-0.2); #Eosinphils 0.2 thou/uL (0.0-0.7); #Monocytes 0.5 thou/uL (0.11-0.59); #Neutrophils 3.4 thou/uL (1.40-6.50); %Basophils 1.1 % (0.0-1.0); %Eosinophils 4.2 % (0.0-10.0); %Lymphocytes 18.9 % (21.0-51.0); %Monocytes 9.2 % (0.0-10.0); %Neutrophils 66.6 % (42.0-75.0); Hemoglobin 10.6 g/dL (12.0-16.0); Mean Corpuscular HGB CONC 32.8 g/dL (32.0-36.0); Mean Corpuscular Hemoglobin 32.6 pg (27.0-31.0); Mean Corpuscular Volume 99.3 fL (78.0-98.0); Mean Platelet Volume 6.9 fL (7.4-10.4); Platelet Count 201 thou/uL (130-400); RBC Distribution Width 14.9 % (11.5-14.5); Red Blood Cell (RBC) Count 3.27 mill/uL (4.20-5.40); White Blood Cell (WBC) Count 5.1 thou/uL (4.8-10.8)
[2019-06-08 05:26] LABS: Anion Gap 15 mmol/L (10-20); BUN (Urea Nitrogen) 52 mg/dL (7.0-18.7); Calc. Creatinine Clearance 12 mL/min (70-130); Calcium 9.1 mg/dL (7.8-10.44); Carbon Dioxide 26 mmol/L (22-29); Chloride 98 mmol/L (98-107); Estimated GFR-MDRD 6; Glucose 97 mg/dL (70-105); Potassium 5.4 mmol/L (3.5-5.1); Sodium 134 mmol/L (136-145)
[2019-06-08] MEDS ORDERED: Lisinopril 5 MG TAB PO SCH (09:00)
[2019-06-08] MEDS ORDERED: Famotidine 20 MG TAB PO SCH (09:00)
[2019-06-08] MEDS: Heparin 5,000 UNITS/ML VIAL SC SCH ×2 (09:30→14:25)
[2019-06-08 09:47] LABS: HBSAg Index 0.13 S/CO (0-0.99); Hep B Surf Ag Non-Reactive S/CO (NonReactive)
--- NOTE | 2019-06-08 11:40 | PRG ---
DATE OF SERVICE: 06/08/2019 SUBJECTIVE: A 49-year-old female, being seen for end-stage renal disease. The patient denied any nausea, vomiting, or chest pain. OBJECTIVE: See above. Awake, alert, in no acute distress. GENERAL APPEARANCE AND MENTAL STATUS: Fair. VITAL SIGNS: Afebrile, pulse 65, breathing 16, blood pressure 131/65. HEAD/NECK: Normocephalic. Atraumatic. EYES: EOMI. No deformity. EARS: Clear. No ulcers. NOSE: Intact. No lesions. MOUTH: Clear. No discharge. THROAT: Clear. No exudate. LUNGS: Clear. No crackles. CARDIAC: S1, S2. No rub. ABDOMEN: Benign. Bowel sounds positive. GENITALIA/RECTUM: Thompson absent. BACK/EXTREMITIES: Edema 0+. NEUROLOGICAL: Alert and motor intact. SKIN: LYMPHATICS: LABORATORY DATA: Reviewed. ASSESSMENT AND PLAN: 1. Stage 6 chronic kidney disease, continue hemodialysis. 2. Hypertension, stable. 3. Anemia, stable. 4. Hyperkalemia, plan dialysis. Job ID: [id number]
[2019-06-08] MEDS: hydrALAZINE 25 MG TAB PO SCH ×2 (13:11→14:26)
[2019-06-08] MEDS: Gabapentin 100 MG CAP PO SCH ×2 (13:12→14:24)
[2019-06-08] MEDS: Amlodipine 10 MG TAB PO SCH (14:25)
[2019-06-08 14:27] VITALS: BP 178/83
[2019-06-08 14:34] VITALS: TEMP 98.3
--- NOTE | 2019-06-08 22:52 | DIS ---
DATE OF ADMISSION: 06/07/2019 DATE OF DISCHARGE: 06/08/2019 REASON FOR HOSPITALIZATION: Dysarthria and near syncope. SIGNIFICANT FINDINGS: The patient had a stroke workup, which was negative for acute CVA including labs and imaging. PROCEDURES PERFORMED AND TREATMENTS RENDERED: The patient had an MRI of the brain, please see full report for details; echocardiogram, please see full report for details; and CT angiography of the head and neck. The patient's metabolic workup also was benign. CONDITION ON DISCHARGE: Stable. SPECIFIC INSTRUCTIONS FOR THE PATIENT/FAMILY: 1. The patient is started on stroke regimen as she does have a history of stroke in the past. 2. The patient is recommended to follow up with primary care physician in the next 5 to 7 days to re-evaluate all home medications. 3. The patient is recommended to follow up with health care administrator and comply with hemodialysis as directed. 4. The patient is recommended to return to acute care hospital immediately if signs or symptoms return, worsen, or any other new symptoms occur. DISCHARGE MEDICATIONS: 1. Aspirin 81 mg one tablet p.o. daily. 2. Atorvastatin 10 mg one tablet p.o. at bedtime. 3. Lisinopril 5 mg one tablet p.o. daily. 4. Hydralazine 25 mg one tablet p.o. t.i.d. 5. Tramadol 50 mg one tab p.o. q.8 hours p.r.n. pain. 6. Amlodipine 10 mg one tablet p.o. daily. 7. Gabapentin 100 mg one tablet p.o. t.i.d. 8. Zofran 4 mg one tablet p.o. q.6 hours p.r.n. nausea and vomiting. HOSPITAL COURSE: Ms. Lassiter is a very pleasant 49-year-old female, who presented to [facility] on 06/06/2019, with dysarthria and near syncope while she was at a local restaurant. The patient was admitted to medical unit with telemetry on the stroke floor for further evaluation. The patient had an MRI of the brain, please see full report for details. There is no acute infarction or hemorrhage identified. The patient does have chronic microvascular ischemic changes. The patient does endorse that she has a history of stroke in the past and she states she has baseline left-sided weakness. When I evaluated the patient, she had no appreciated focal neurologic deficits outside of her baseline. The patient having no facial asymmetry. The patient with dysarthria that has resolved. The patient with CT angiography of the head and neck, please see full report for details. No significant stenosis hemodynamically based on NASCET criteria. The patient had a metabolic workup, please see full report for details. There is no acute metabolic abnormalities that would explain the patient's condition. The patient had echocardiogram that redemonstrates her cardiomyopathy with ejection fraction of 30%, which is known to her. The patient does follow up with a trust and estates paralegal in the outpatient setting for this. With a negative workup, the patient was recommended safe for discharge. The patient did have hemodialysis on 06/08/2019 to ensure that she would continue on her regular regimen of Saturday, Saturday, and Saturday. The patient recommended to follow up at her regular dialysis time on Saturday this week. The patient recommended safe for discharge with close followup in the outpatient setting with primary care physician. The patient recommended to start stroke regimen as she has history of stroke in the past. The patient is recommended to have stroke regimen adjusted by primary care physician in the next 5 to 7 days as needed. The patient is recommended to follow up with Nephrology in the next 1 to 2 days. The patient is recommended to return to acute care hospital immediately if signs or symptoms return, worsen, or any other new symptoms occur. Greater than 38 minutes spent coordinating care and discharge process for this patient. Job ID: [id number]
== END 2019-06-08 15:37 | disposition home or self-care (01) | DRG 91 ==
LOC: ERS 21:01 → 2SE 06-07 02:39
PROVIDERS: ADMIT Hospitalist; ATTEND Hospitalist
PROC: 5A1D70Z Performance of Urinary Filtration, Intermittent, Less than 6 Hours Per Day (ICD-10-PCS; principal; 2019-06-08)
DX: R47.1 Dysarthria and anarthria (principal); N18.6 End stage renal disease; I69.354 Hemiplegia and hemiparesis following cerebral infarction affecting left non-dominant side; I42.9 Cardiomyopathy, unspecified; I12.0 Hypertensive chronic kidney disease with stage 5 chronic kidney disease or end stage renal disease; M19.90 Unspecified osteoarthritis, unspecified site; M79.2 Neuralgia and neuritis, unspecified; R55 Syncope and collapse; D63.8 Anemia in other chronic diseases classified elsewhere; E87.5 Hyperkalemia; E11.22 Type 2 diabetes mellitus with diabetic chronic kidney disease; E78.00 Pure hypercholesterolemia, unspecified; Z99.2 Dependence on renal dialysis
CPT/HCPCS: 36415; 36416; 51701; 70450; 70496; 70498; 70551; 71045; 80048; 80053; 80306; 80307; 81003; 81015; 82553; 84484; 85025; 85610; 85730; 86850; 86900; 86901; 87340; 93005; 93306; 96374; A4353; J0360; J1644; Q9966

== ENCOUNTER 2019-07-09 11:08 | Day surgery (SDC) | payer OTHER ==
[2019-07-08 08:29] VITALS: BMI 34.9
[~2019-07-09 11:08] MED LIST changes: +EPINEPHrine 0.3 MG in Ophthalmic Irrigation Solution 500 ML IV SCH; +Fentanyl 100 MCG/2 ML VIAL ONE; -ISOVUE-370 76%-LOCM 1 ML ONE; +Midazolam HCl 2 mg/2 ml Vial ONE
[2019-07-09] MEDS ORDERED: Phenylephrine 2.5% Ophth Soln 5 ML BOT ONE (11:53)
[2019-07-09] MEDS ORDERED: Cyclopentolate 1% Opth Drop 2 ML BOT ONE (11:53)
[2019-07-09] MEDS ORDERED: Maxitrol 0.1% Opth Oint 3.5 GM TUBE ONE (12:31)
[2019-07-09] MEDS ORDERED: CEFAZOLIN 1 GM VIAL ONE (12:31)
[2019-07-09] MEDS ORDERED: Triamcinolone 40 MG/ML VIAL ONE (12:31)
[2019-07-09] MEDS ORDERED: Bupivacaine PF 0.75% SDV 10 ML ONE (12:31)
[2019-07-09] MEDS ORDERED: Lidocaine 1% PF 5 ML VIAL ONE (12:31)
[2019-07-09] MEDS ORDERED: Lidocaine 4% PF 5 ML AMP ONE (12:31)
--- NOTE | 2019-07-09 17:56 | OP ---
DATE OF PROCEDURE: 07/09/2019 PREOPERATIVE DIAGNOSIS: Vitreous hemorrhage, left eye. POSTOPERATIVE DIAGNOSIS: Vitreous hemorrhage, left eye. PROCEDURES PERFORMED: 1. Pars plana vitrectomy, left eye. 2. Membrane peel, left eye. 3. Endolaser, left eye. ANESTHESIA: Local monitored anesthesia care. PROCEDURE IN DETAIL: The patient was identified in preop holding area. With appropriate informed consent, the planned surgical procedure on the left eye had been obtained. The patient was transported to the operative suite. Appropriate cardiopulmonary monitoring was established. Local anesthesia obtained using retrobulbar modified Van Lint lid block using 50:50 mixture of 4% lidocaine and 0.75% bupivacaine. The patient was prepped and draped in usual sterile manner for ophthalmic surgery in the left eye. Lid speculum was placed in the left eye. A 25-gauge trocar was placed in conjunctiva and sclera superotemporally, inferotemporally, and supranasally. Infusion line was placed inferotemporally. Light pipe vitreous cutter inserted to the eye. Core vitrectomy was performed. A significant amount of vitreous hemorrhage drained from the eye, revealing attached retina and good panretinal photocoagulation. Additional panretinal photocoagulation was added in all nontreated areas of the retina. Trocars were removed. Eye was noted to retain pressure well. Retrobulbar Kenalog and subconjunctival Ancef were placed. Antibiotic ointment was placed. Eye was patched and shielded. The patient was taken to postoperative recovery unit in good condition having suffered no immediate perioperative complications. The patient was instructed to keep patch and shield on and provided followup appointment with Dr. Truong. Job ID: [id number]
== END 2019-07-09 15:35 | disposition home or self-care (01) ==
LOC: SDC 11:08
PROVIDERS: ATTEND Ophthalmology Retina Specialist
PROC: 08T53ZZ Resection of Left Vitreous, Percutaneous Approach (ICD-10-PCS; principal; 2019-07-09)
PROC: 08NF3ZZ Release Left Retina, Percutaneous Approach (ICD-10-PCS; principal; 2019-07-09)
DX: H43.12 Vitreous hemorrhage, left eye (principal); H43.312 Vitreous membranes and strands, left eye; Z79.82 Long term (current) use of aspirin; Z79.899 Other long term (current) drug therapy
CPT/HCPCS: J0171; J0690; J2001; J2250; J3010; J3301; J3490

== ENCOUNTER 2019-07-29 16:55 | Emergency (ER) | payer MEDICARE ==
[2019-07-29 18:03] LABS: #Eosinphils 0.1 thou/uL (0.0-0.7); #Lymphocytes 0.9 thou/uL (1.20-3.40); #Monocytes 0.5 thou/uL (0.11-0.59); #Neutrophils 3.8 thou/uL (1.40-6.50); %Basophils 0.6 % (0.0-1.0); %Eosinophils 1.9 % (0.0-10.0); %Lymphocytes 16.9 % (21.0-51.0); %Monocytes 9.2 % (0.0-10.0); %Neutrophils 71.4 % (42.0-75.0); Hemoglobin 11.2 g/dL (12.0-16.0); Mean Corpuscular HGB CONC 32.5 g/dL (32.0-36.0); Mean Corpuscular Hemoglobin 31.8 pg (27.0-31.0); Mean Platelet Volume 8.4 fL (7.4-10.4); Platelet Count 229 thou/uL (130-400); RBC Distribution Width 15.8 % (11.5-14.5); Red Blood Cell (RBC) Count 3.51 mill/uL (4.20-5.40); White Blood Cell (WBC) Count 5.3 thou/uL (4.8-10.8)
[2019-07-29] MEDS ORDERED: hydrALAZINE 20 MG/ML VIAL ONE (18:09)
--- NOTE | 2019-07-29 18:21 | RAD ---
Chest one view Abdomen 2 views HISTORY: Chest and abdomen pain. FINDINGS: Cardiac silhouette is magnified and enlarged. Shallow inspiration accentuates pulmonary mar kings. Mediastinum is midline. No confluent airspace consolidation or evidence of free subdiaphragmatic gas. Gas and stool throughout the colon. No differential air-fluid levels or evidence of free intraperiton eal gas. IMPRESSION: Nonspecific bowel gas pattern. Cardiomegaly.
[2019-07-29 19:15] LABS: Phosphorus 3.7 mg/dL (2.3-4.7)
[2019-07-29 19:16] LABS: ALT (SGPT) Less than 7 U/L (8-55); AST (SGOT) 10 U/L (5-34); Albumin 3.6 g/dL (3.5-5.0); Alkaline Phosphatase 86 U/L (40-110); Anion Gap 15 mmol/L (10-20); BUN (Urea Nitrogen) 22 mg/dL (7.0-18.7); Bilirubin, Total 0.9 mg/dL (0.2-1.2); Calc. Creatinine Clearance 0 mL/min (70-130); Carbon Dioxide 26 mmol/L (22-29); Chloride 99 mmol/L (98-107); Estimated GFR-MDRD 9; Globulin 3.7 g/dL (2.4-3.5); Glucose 81 mg/dL (70-105); Lipase 8 U/L (8-78); Potassium 3.8 mmol/L (3.5-5.1); Protein, Total 7.3 g/dL (6.0-8.3); Sodium 136 mmol/L (136-145)
== END 2019-07-29 20:27 | disposition home or self-care (01) ==
LOC: ERS 16:55
DX: R19.7 Diarrhea, unspecified (principal); I25.2 Old myocardial infarction; I13.0 Hypertensive heart and chronic kidney disease with heart failure and stage 1 through stage 4 chronic kidney disease, or unspecified chronic kidney disease; N18.6 End stage renal disease; I50.9 Heart failure, unspecified; E11.22 Type 2 diabetes mellitus with diabetic chronic kidney disease; E78.00 Pure hypercholesterolemia, unspecified; Z86.73 Personal history of transient ischemic attack (TIA), and cerebral infarction without residual deficits; Z99.2 Dependence on renal dialysis; Z79.899 Other long term (current) drug therapy
CPT/HCPCS: 36415; 74022; 80053; 83690; 83735; 84100; 85025; J0360

== ENCOUNTER 2019-08-27 06:19 | Day surgery (SDC) | payer OTHER ==
[2019-08-26 10:49] VITALS: BMI 34.5
[~2019-08-27 06:19] MED LIST changes: +EPINEPHrine 0.3 MG in Ophthalmic Irrigation Solution 500 ML IRR SCH; -EPINEPHrine 0.3 MG in Ophthalmic Irrigation Solution 500 ML IV SCH; -Fentanyl 100 MCG/2 ML VIAL ONE; -Midazolam HCl 2 mg/2 ml Vial ONE
[2019-08-27] MEDS ORDERED: Phenylephrine 2.5% Ophth Soln 5 ML BOT ONE (07:21)
[2019-08-27] MEDS ORDERED: Cyclopentolate 1% Opth Drop 2 ML BOT ONE (07:21)
[2019-08-27] MEDS ORDERED: Midazolam HCl 2 mg/2 ml Vial ONE (08:02)
[2019-08-27] MEDS ORDERED: PROPOFOL 20 ML ONE (08:02)
[2019-08-27] MEDS ORDERED: Fentanyl 100 MCG/2 ML VIAL ONE (08:02)
--- NOTE | 2019-08-27 09:32 | OP ---
DATE OF PROCEDURE: 08/27/2019 PREOPERATIVE DIAGNOSIS: Vitreous hemorrhage, left eye. POSTOPERATIVE DIAGNOSIS: Vitreous hemorrhage, left eye. PROCEDURES PERFORMED: Pars plana vitrectomy, membrane peel, panretinal photocoagulation, left eye. ANESTHESIA: Local with monitored anesthesia care. DESCRIPTION OF PROCEDURE: The patient was identified in the preoperative holding area. Appropriate informed consent for the planned surgical procedure on the left eye had been obtained. The patient was transported to the operative suite. Appropriate cardiopulmonary monitoring was established. Local anesthesia was obtained using retrobulbar modified Van Lint lid block using 50:50 mixture of 4% lidocaine and 0.75% bupivacaine. The patient was prepped and draped in usual sterile manner for ophthalmic surgery on the left eye. Lid speculum was placed in the left eye. A 25-gauge trocar was placed through conjunctiva and sclera supratemporally, inferotemporally, and supranasally. Infusion line was placed inferotemporally. Light pipe and vitreous cutter were inserted to the eye. Core vitrectomy was performed. The vitreous base was trimmed, removing significant amounts of residual blood. Panretinal photocoagulation was placed in all non-macular, nontreated areas of the retina. No obvious sources of hemorrhaging were identified. Trocars were removed. Eye was noted to retain pressure well. Retrobulbar Kenalog and subconjunctival Ancef were placed. Antibiotic ointment was placed. Eye was patched and shielded. The patient was taken to postoperative recovery unit in good condition, having suffered no immediate perioperative complications. The patient was instructed to keep patch and shield on, avoid lifting or bending, and followup appointment with Dr. Truong. Job ID: [id number]
[2019-08-27] MEDS ORDERED: Triamcinolone 40 MG/ML VIAL ONE (14:46)
[2019-08-27] MEDS ORDERED: Bupivacaine PF 0.75% SDV 10 ML ONE (14:46)
[2019-08-27] MEDS ORDERED: Lidocaine 4% PF 5 ML AMP ONE (14:46)
[2019-08-27] MEDS ORDERED: Maxitrol 0.1% Opth Oint 3.5 GM TUBE ONE (14:46)
[2019-08-27] MEDS ORDERED: CEFAZOLIN 1 GM VIAL ONE (14:46)
== END 2019-08-27 09:50 | disposition home or self-care (01) ==
LOC: SDC 06:19
PROVIDERS: ATTEND Ophthalmology Retina Specialist
PROC: 08T53ZZ Resection of Left Vitreous, Percutaneous Approach (ICD-10-PCS; principal; 2019-08-27)
PROC: 08NF3ZZ Release Left Retina, Percutaneous Approach (ICD-10-PCS; principal; 2019-08-27)
PROC: 08QF3ZZ Repair Left Retina, Percutaneous Approach (ICD-10-PCS; principal; 2019-08-27)
DX: H43.12 Vitreous hemorrhage, left eye (principal); N18.9 Chronic kidney disease, unspecified; Z99.2 Dependence on renal dialysis
CPT/HCPCS: 36416; J0171; J0690; J2001; J2250; J2704; J3010; J3301; J3490

== ENCOUNTER 2024-07-22 15:34 | Emergency (ER) | payer MEDICARE ==
[2024-07-22 16:07] LABS: #Basophils 0.05 10x3/uL (0.0-0.2); %Basophils 0.7 % (0.0-1.0); %Eosinophils 1.6 % (0.0-10.0); %Lymphocytes 38.9 % (21.0-51.0); %Monocytes 7.2 % (0.0-10.0); %Neutrophils 51.1 % (42.0-75.0); Hematocrit 37.4 % (36.0-47.0); Hemoglobin 12.2 g/dL (12.0-16.0); Mean Corpuscular HGB CONC 32.6 g/dL (32.0-36.0); Mean Corpuscular Volume 88.8 fL (78.0-98.0); Mean Platelet Volume 9.4 fL (7.4-10.4); Platelet Count 222 10x3/uL (130-400); RBC Distribution Width 15.5 % (11.5-14.5); Red Blood Cell (RBC) Count 4.21 mill/uL (4.20-5.40)
[2024-07-22 16:22] LABS: Actual Bicarbonate (HCO3v) 25.4 mEq/L (22-28); Analyzer IN Cardio ER; Base Excess 4.8 mEq/L (-2.0 to +3.0); Calcium, Ionized (venous) 1.01 mmol/L (1.16-1.32); Chloride (VBG) 96 mmol/L (98-106); Hematocrit-VBG 38 % (36.0-47.0); Hemoglobin (Hb) 12.9 g/dL (11.7-16.0); Potassium (VBG) 3.51 mmol/L (3.70-5.30); Sodium 138 mmol/L (133-146); pH (venous) 7.604 (7.32-7.43)
[2024-07-22 16:31] LABS: ALT (SGPT) 9 U/L (8-55); AST (SGOT) 27 U/L (5-34); Albumin 3.1 g/dL (3.5-5.0); Alkaline Phosphatase 124 U/L (40-110); Anion Gap 23 mmol/L (10-20); BUN (Urea Nitrogen) 39 mg/dL (9.8-20.1); Bilirubin, Total 0.9 mg/dL (0.2-1.2); Calc. Creatinine Clearance 0 mL/min (70-130); Calcium 9.8 mg/dL (7.8-10.44); Carbon Dioxide 22 mmol/L (22-29); Chloride 98 mmol/L (98-107); Estimated GFR 4; Glucose 75 mg/dL (70-105); Potassium 4.7 mmol/L (3.5-5.1); Protein, Total 8.1 g/dL (6.0-8.3); Sodium 138 mmol/L (136-145)
[2024-07-22 16:35] LABS: Troponin I 0.078 ng/mL (< 0.028)
[2024-07-22 19:03] LABS: Lactic Acid 1.32 mmol/L (0.5-2.2)
== END 2024-07-22 20:12 | disposition home or self-care (01) ==
LOC: ERS 15:34
DX: R06.00 Dyspnea, unspecified (principal); I11.0 Hypertensive heart disease with heart failure; I50.9 Heart failure, unspecified; E11.9 Type 2 diabetes mellitus without complications; Z55.0 Illiteracy and low-level literacy; Z91.158 Patient's noncompliance with renal dialysis for other reason; Z86.73 Personal history of transient ischemic attack (TIA), and cerebral infarction without residual deficits; Z79.4 Long term (current) use of insulin
CPT/HCPCS: 36415; 36416; 71045; 80053; 82805; 83605; 83735; 83880; 84484; 85025; 93005; 96360; 96361

== ENCOUNTER 2025-06-16 11:06 | Emergency (ER) | payer OTHER ==
[2025-06-16] MEDS ORDERED: Dextrose 50% Abboject 50 ML SYRINGE ONE (11:12)
[2025-06-16] MEDS ORDERED: Calcium Chloride 1 GM/10 ML Abboject SYRINGE ONE (11:12)
[2025-06-16] MEDS ORDERED: EPINEPHrine 1 MG/10 ML Abboject SYRINGE ONE (11:12)
[2025-06-16] MEDS ORDERED: Magnesium 2 GM/50 ML BAG (IN WATER) ONE (11:22)
[2025-06-16] MEDS ORDERED: Esmolol 2,500 MG/250 ML 250 ML ONE (11:35)
== END 2025-06-16 11:46 ==
LOC: ERS 11:06
DX: I46.9 Cardiac arrest, cause unspecified (principal); I13.2 Hypertensive heart and chronic kidney disease with heart failure and with stage 5 chronic kidney disease, or end stage renal disease; N18.6 End stage renal disease; E11.22 Type 2 diabetes mellitus with diabetic chronic kidney disease; Z99.2 Dependence on renal dialysis; I25.2 Old myocardial infarction; Z86.73 Personal history of transient ischemic attack (TIA), and cerebral infarction without residual deficits
CPT/HCPCS: 31500; 92950; J0165; J0282; J3475; J7999